=== PATIENT | female | born 1980 | race Caucasian/White ===

== ENCOUNTER 2022-02-08 11:54 | Emergency (ER) | payer MEDICAID, SELFPAY ==
--- NOTE | ~2022-02-08 | XR_ITS ---
EXAMINATION: XR CHEST CLINICAL INFORMATION: Chest pain COMPARISON: None TECHNIQUE: 2 views of the chest were obtained. FINDINGS: No significant abnormality is noted involving the heart, lungs, mediastinum, or soft tissues. Question postsurgical changes to the cervical spine seen on the PA view only. XR/XR chest 2V IMPRESSION: No evidence for acute disease in the chest.
[2022-02-08 12:02] VITALS: BMI 31.5
--- NOTE | 2022-02-08 12:03 | ECG_ITS ---
Test Reason : CHEST PAIN Blood Pressure : / mmHG Vent. Rate : 073 BPM Atrial Rate : 073 BPM P-R Int : 134 ms QRS Dur : 084 ms QT Int : 414 ms P-R-T Axes : 079 066 040 degrees QTc Int : 456 ms Normal sinus rhythm with sinus arrhythmia Normal ECG No previous ECGs available Referred By: Generic ED Physician Electronically Signed By:TIM SMITH
[2022-02-08 13:14] VITALS: BP 112/67; PULSE 68; RESP 22; TEMP 36.4; O2SAT 97; BMI 31.5
== END 2022-02-08 14:30 | disposition left against medical advice (07) ==
PROVIDERS: Emergency Provider Emergency Medicine; PCP Internal Medicine
DX: R07.89 Other chest pain (principal)
CPT/HCPCS: 71046; 93005; 99283

== ENCOUNTER 2022-08-09 08:58 | Outpatient (REF) | payer BC, SELFPAY ==
[2022-08-09 11:48] LABS: Hematocrit 35.2 % (37.0-47.0); Hemoglobin 11.1 g/dl (12.0-16.0); Mean Corpuscular HGB Conc 31.5 g/dl (31.0-35.0); Mean Corpuscular Hemoglobin 23.6 pg (27.0-33.0); Mean Corpuscular Volume 74.9 fL (80.0-98.0); Platelet Count 324 X10*3/uL (160-400); Red Cell Distribution Width 15.9 % (11.0-16.0); White Blood Count 11.5 X10*3/uL (4.8-10.8)
[2022-08-09 11:55] LABS: Alanine Aminotransferase 9 U/L (0-31); Albumin Level 4.1 g/dL (3.5-5.0); Alkaline Phosphatase 70 U/L (39-117); Anion Gap 11 (12-20); Aspartate Amino Transferase 12 U/L (5-31); Bilirubin Total 0.6 mg/dL (0.0-1.0); Blood Urea Nitrogen 8 mg/dL (9-16); Calcium 9.1 mg/dL (8.4-10.2); Carbon Dioxide 28 mmol/L (22-29); Chloride 106 mmol/L (96-108); Cholesterol 284 mg/dL; Estimated Glomerular Filt Rate > 60; Glucose Fasting 95 mg/dL (60-99); HDL Cholesterol 50 mg/dL; LDL Cholesterol Calculated 220 mg/dl; Potassium 4.2 mmol/L (3.3-5.1); Sodium 141 mmol/L (135-145); Total Protein 6.8 g/dL (6.5-8.0); Triglycerides 72 mg/dL
[2022-08-09 15:04] LABS: Iron 28 mcg/dL (30-160); Percent Iron Saturation 8 % (15-50); Total Iron Binding Capacity 359 mcg/dL (228-428); Unsaturated Iron Binding 331 ug/dL
== END 2022-08-09 08:59 | disposition home or self-care (01) ==
LOC: HO.WFDLDS 08:58
PROVIDERS: Nurse Practitioner Family; Visit Provider Hospitalist
DX: Z00.00 Encounter for general adult medical examination without abnormal findings (principal); D64.9 Anemia, unspecified; E66.9 Obesity, unspecified; Z98.84 Bariatric surgery status
CPT/HCPCS: 36415; 80053; 80061; 83540; 84443; 85027

== ENCOUNTER → 2022-09-01 07:56 | Outpatient (BNVA) | payer BC, SELFPAY | PROVIDERS: PCP Nurse Practitioner Family; Visit Provider Psychiatry & Neurology Neurology | DX: Z13.89 Encounter for screening for other disorder (principal) ==

== ENCOUNTER 2024-09-12 09:37 | Outpatient (AMB) | payer OTHER, SELFPAY ==
--- NOTE | 2024-09-12 09:39 | A.OFFPC_ITS ---
Vital Signs 09/12/24 09:50 Height 5 ft 2.5 in Weight 186 lb 6 oz BMI 33.5 BP 111/55 L Blood Pressure Location Rt brachial Position Sitting Respiration 16 Pulse 97 Pulse Source Pulse Oximeter Temp 98.1 F Temp Source Oral Pulse Oximetry (%) 98 Oxygen Delivery Method Room Air Intake Visit Reasons: Est. Care Intake Note: patient here for new patient visit Vegetable Farmer Required: No Is last menstrual period known: Yes Last menstrual period: 08/24/24 Post menopausal: No Patient : No Allergies buspirone Allergy (Severe, Verified 09/12/24 09:57) loss of balance Penicillins Allergy (Mild, Verified 09/12/24 09:57) hives tumeric Allergy (Severe, Uncoded 09/12/24 09:57) throat swelling iv contrast Allergy (Mild, Uncoded 09/12/24 09:57) Hives Medication List - Last Reconciled 09/12/24 by Marilee Brunner CNP ferrous sulfate (Iron (ferrous sulfate)) 325 mg PO DAILY 30 days lorazepam 1 mg PO BID PRN trazodone 100 mg PO BEDTIME PRN 30 days Tobacco use date assessed: 09/12/24 Dental Screening Dental Screen Date: 09/12/24 Did you have a dental visit in the last 12 months?: Yes Did you have a dental problem in the last 6 months where you did not have access to dental care?: No Was dental information given to patient?: Patient has dentist HPI HPI Comments History of Present Illness Details 44-year-old female presents to establish care. Prior PCP? - Lupe Mariscal [facility] Marci becerril Last office visit/CPE/labs - 09/06/2022 Acute issue(s) - Reports intermittent palpitations whic h started 2 weeks ago and was evaluated at [facility] ED. Labs and imaging were unremarkable. Her symptoms subsided for 2-3 days and returned on 09/07/2024 and has been persistent. She was evaluated at [facility] on 09/09/2024; see notes below: She was evaluated at [facility] 09/09/2024 for palpitations and an episode of syncope. EKG revealed intermittent PVCs, calcium was borderline low, otherwise electrolytes were within normal limits, troponin were negative, chest x-ray was normal, baseline microcytic anemia noted. Recommended to follow-up with her PCP to discuss Holter monitor. Anxiety and depression: She reports anxiety and depressive symptoms. She notes that she has always been anxious. 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 She has not been taking trazadone and trazadone since she ran out of refills 6 months ago. She was followed by a therapist until her health plan changed 8 months ago and lost coverage; she is on a wait list for a therapist. She denies SI/HI/LOBO. Past Medical History - Multiple sclerosis, iron-deficiency an emia, anxiety, depression, myopia Surgical History - section, bilateral breast red uction surgery, gastric sleeve, cholecystectomy Family History - Dad: Tumors - Mom: Alcohol abuse, mental illness - MGM: Dementia - MGF: Alcohol abuse Social History - She was smoking a pack of cigarettes d aily but currently smokes 10 cigarettes daily; she is trying to quit. Does not vape. Does not drink alcohol. Consumes cannabis gummy nightly for muscle cramps to legs - Has been making healthy dietary choice s. Exercises routinely. She has difficulty falling or maintaining sleep; she sleeps an average of 3-4 hours nightly Health maintenance - Last eye exam was 6 months ago with Rg gifford [facility]. She will sign a release for her PCP to obtain her ophthalmology record - Last dental visit was 2 months ago for an extraction. She notes poor dentition - Unable to recall last tetanus vaccine but notes within the past 10 years - She notes that she is up-to-date on flu vaccine - Last pap smear test was 2 years ago at [place] [facility] testing operator: normal. Record not available - Last mammogram was 12 years ago: benig n tumors. Mammogram ordered [facility] Medical History (Updated 09/12/24 @ 14:53 by Marilee Brunner CNP) Cervical fusion syndrome Imbalance Memory loss Headache Incontinence in female Back disorder History of palpitations Sinusitis Asthma Insomnia Memory change Cervicalgia Diplopia Numbness and tingling in both hands Weakness Fusion of spine of cervical region Depression Anxiety Multiple sclerosis Surgical History (Updated 09/12/24 @ 10:05 by Ingrid Boo MA) History of tonsillectomy H/O removal of cyst H/O section H/O gastric sleeve History of cholecystectomy Family History (Updated 09/12/24 @ 10:03 by Ingrid Boo MA) Family/Other Tumors Maternal Grandmother Dementia Thyroid disorder Lung cancer Sister Alcohol abuse FH: mental illness High cholesterol Thyroid disorder Mother Alcohol abuse FH: mental illness High cholesterol Thyroid disorder Maternal Aunt Alcohol abuse Maternal Aunt No problems noted. 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 1. Little interest or pleasure in doing things: more than half the days 2. Feeling down, depressed, or hopeless: several days 3. Trouble falling or staying asleep, or sleeping too much: nearly every day 4. Feeling tired or having little energy: nearly every day 5. Poor appetite or overeating: not at all 6. Feeling bad about yourself - or that you are a failure or have let yourself or your family down: more than half the days 7. Trouble concentrating on things, such as reading the newspaper or watching television: nearly every day 8. Moving or speaking so slowly that other people could have noticed. Or the opposite - being so fidgety or restless that you have been moving around a lot more than usual: not at all 9. Thoughts that you would be better off or of hurting yourself in some way: not at all Total score: 14 Depression Screening Interpretation: Positive Depression Screening Follow-up: Existing condition and In treatment Depression Screening Done: Yes 60116 - PHQ-9 Billing: Yes Source: Developed by Drs. Savage Scott, Marycruz Stark, Rancho Camejo and colleagues, with an educational dee from [employer]. Thrive Questionnaire Date Thrive assessed: 09/12/24 I am a: Patient What is your living situation today?: I have a steady place to live Within the past 12 months, did the food you bought not last and you didn't have the money to get more?: I choose not to answer this question Within the past 12 months, did you worry whether your food would run out before you got money to buy more?: I choose not to answer this question Do you have trouble paying for medicines?: I choose not to answer this question Do you have trouble getting transportation to medical appointments?: I choose not to answer this question Do you have trouble paying your heating and electricity bill?: I choose not to answer this question Do you have trouble taking care of your child, family member or friend?: I choose not to answer this question Do you have trouble with day-to-day activities such as bathing, preparing meals, shopping, managing finances, etc.?: I choose not to answer this question Are you currently unemployed and looking for a job?: I choose not to answer this question Are you interested in more education?: I choose not to answer this question Please select the resources that you would like help with: None Currently or been in a relationship where the following occur: I choose not to answer THRIVE Score: 0 AUDIT C Alcohol Use Questionnaire (AUDIT-C) 1. How often do you have a drink containing alcohol?: Never 3. How often do you have six or more drinks on one occasion?: Never Total Score: 0 Score Reviewed/Action Taken: Yes KAIDEN-7 AMB Questionnaire KAIDEN-7 Date KAIDEN - 7 assessed: 09/12/24 Feeling nervous, anxious, or on edge: 3 = Nearly every day Not being able to stop or control worryin = Nearly every day Worrying too much about different things: 3 = Nearly every day Trouble relaxin = Nearly every day Being so restless that it is hard to sit still: 3 = Nearly every day Becoming easily annoyed or irritable: 3 = Nearly every day Feeling afraid as if something awful might happen: 3 = Nearly every day Total KAIDEN-7 score (0-4 normal; 5-9 mild; 10-14 moderate; 15-21 severe): 21 Source: Developed by Marycruz Rose Lincoln, Rancho Camejo and colleagues, with an educational dee from [employer]. KAIDEN-7 Assessment Billing KAIDEN-7 Assessment Tool: KAIDEN-7 Assessment 07716 ACT Questionnaire In the past 4 weeks, how much of the time did your asthma keep you from getting as much done at work, school or at home?: None of the time During the past 4 weeks, how often have you had shortness of breath?: 3-6 times a week During the past 4 weeks, how often did your asthma symptoms wake you up at night or earlier than usual in the morning?: Not at all During the past 4 weeks, how often have you had to use your rescue inhaler or nebulizer medication?: Not at all How would you rate your asthma control during the past 4 weeks?: Completely controlled ACT Interpretation: Negative Score: 23 Review of Systems Const Details: Const Denies chills, Denies fatigue, Denies fever(s), Denies headache(s) and Denies weakness ENT Denies dizziness and Denies headache(s) Card Reports palpitations, Denies chest pain, Denies lightheadedness, Denies dyspnea Resp Denies cough, Denies dyspnea, Denies wheezing and Denies other ( shortness of breath) GI Denies abdominal pain, Denies melena, Denies hematochezia, Denies change in bowel habits, Denies dyspepsia and Denies nausea Denies hematuria and Denies dysuria Musc Denies abnormal gait, Denies myalgias, Denies arthralgias, Denies numbness and Denies tingling Skin/Breast Denies rash, Denies unusual bruising and Denies wounds Neuro Denies abnormal gait, Denies dizziness, Denies headache(s), Denies memory loss, Denies numbness, Denies Sensory deficit (Neuro), Denies tingling and Denies weakness Psych Reports anxiety, Reports depression, Denies memory loss Endo Denies cold intolerance, Denies fatigue, Denies heat intolerance, Denies polydipsia and Denies polyuria Aller/Immun Denies wheezing Physical exam (Primary Care) Vital Signs: Last Vital Signs Temp 98.1 F 09/12/24 09:50 Pulse 97 09/12/24 09:50 Resp 16 09/12/24 09:50 BP 111/55 L 09/12/24 09:50 Pulse Ox 98 09/12/24 09:50 Oxygen Delivery Method Room Air 09/12/24 09:50 BMI result Body Mass Index 33.5 Tobacco/Smoking Status: Tobacco use Status Tobacco use date assessed 09/12/24 09/12/24 09:54 Patient Tobacco Use Status Current everyday Tobacco 09/12/24 09:54 e-Cigarette/Vaping Use Never Used 09/12/24 09:41 PHQ-9: PHQ-9 Score PHQ-9: Total score 14 09/12/24 10:01 Depression Screening Interpretation: Positive Depression Screening Follow-up: Existing condition and In treatment Thrive Assessment: Date of Thrive Assessment Date Thrive assessed 09/12/24 09/12/24 09:41 Currently or been in a relationship where the following occur: I choose not to answer Const Other: General: no acute distress and well developed Nutritional Appearance: well nourished Orientation/consciousness: patient oriented x3 HENMT Head: Yes normocephalic and Yes atraumatic Eyes General: appearance normal, both eyes and all related structures Pupils: Equal, round and reactive pupils present EOM: EOMs intact bilaterally Resp Effort & Inspection: normal respiratory effort Auscultation: clear to auscultation bilaterally Cardio Rate: regular rate Rhythm: regular rhythm Heart sounds: S1 normal heart sound present, S2 normal heart sound present, no gallops, no murmurs and no rubs GI Palpation (GI): No Abdominal aortic bruit present, Soft to palpation, nontender, No hepatosplenomegaly present and No Rebound tenderness present Auscultation: normal bowel sounds General: Yes no CVA tenderness Back/Spine/Pelvis Back: no CVA tenderness Cervical Spine: cervical ROM normal and No Cervical spine tenderness Thoracic/Lumbar Spine: thoraco-lumbar ROM normal, No pain with thoraco-lumbar ROM, No thoracic spinal tenderness and No lumbar spinal tenderness Extrem General: Yes normal to inspection, No edema and No calf tenderness Skin General: warm and dry. Normal skin color. Normal skin turgor Lesions: no lesions Rashes: no rashes Trauma: no lacerations or abrasions Wounds: no wounds Nails: normal Neuro General: patient oriented x3, gait normal and no focal neuro deficit Cranial nerves: Yes Equal, round and reactive pupils present Cognition (Neuro): normal cognition Gait exam (Neuro): Normal gait present Sensory Exam: No Sensory deficit (Neuro) Psych Appearance: grossly normal Affect: normal affect Attitude: cooperative Thought process: Normal thought process present Coding Level of Care Code Est Pt Level 5 (09080) Diagnoses Heart palpitations R00.2 Anxiety F41.9 Major depressive disorder F32.9 Major depression episode severity: unspecified Sleep disturbance G47.9 Breast cancer screening by mammogram Z12.31 Laboratory tests ordered as part of a complete physical exam (CPE) Z00.00 Additional Codes Asthma Control Questionnaire - ACT Interpretation: Negative ([id number]) KAIDEN-7 Assessment Billing - KAIDEN-7 Assessment Tool: KAIDEN-7 Assessment 87528 ([id number]) PHQ-9 - 94636 - PHQ-9 Billing: Yes ([id number]) Assessment & Plan Assessment & Plan (1) Heart palpitations: Code(s): R00.2 - Palpitations Category: Medical Plan: She reports intermittent palpitations which started 2 weeks ago and was evaluated at [facility] ED. Labs and imaging were unremarkable. Her symptoms subsided for 2-3 days and returned on 09/07/2024 and has been persistent. She was recently evaluated at [facility] twice for palpitations; labs and EKG were benign. Heart with regular rate and rhythm. STAT Holter monitor ordered; will review results and make changes as needed. May referred to Cardiology. Anxiety may also be a contributing cause. Advised to take her medications as prescribed for anxiety. Follow-up with worsening or new symptoms. Verbalized understanding and agreed with plan. (2) Anxiety: Code(s): F41.9 - Anxiety disorder, unspecified Category: Medical Plan: She reports anxiety and depressive symptoms. She notes that she has always been anxious. 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 She has not been taking trazadone and lorazepam since she ran out of refills 6 months ago. She was followed by a therapist until her health plan changed 8 months ago and lost coverage; she is on a wait list for a therapist. She is not followed by a psychiatrist. She has difficulty falling or maintaining sleep; she sleeps an average of 3-4 hours nightly. She denies SI/HI/LOBO. PHQ-9 and KAIDEN-7 scores revealed moderate depression and severe anxiety respectively. Escitalopram 10 mg daily ordered to target depression, Trazodone 50 mg at bedtime ordered for sleep, and Hydroxyzine 25 mg 3 times daily as needed for anxiety ordered; advised to take as prescribed. Instructed on the risks, benefits, and potential adverse reactions of the medications. Routine exercise encouraged. Follow-up in 2 weeks or sooner with worsening or new symptoms. Verbalized understanding and agreed with the treatment plan. (3) Major depressive disorder: Code(s): F32.9 - Major depressive disorder, single episode, unspecified Category: Medical Qualifiers: Major depression episode severity: unspecified Plan: Plan as above. (4) Sleep disturbance: Code(s): G47.9 - Sleep disorder, unspecified Category: Medical Plan: Plan as above. (5) Breast cancer screening by mammogram: Code(s): Z12. - Encounter for screening mammogram for malignant neoplasm of breast Category: Medical Plan: Last mammogram was 12 years ago: benign tumors. Mammogram ordered. (6) Laboratory tests ordered as part of a complete physical exam (CPE): Code(s): Z00.00 - Encounter for general adult medical examination without abnormal findings Category: Medical Plan: Fasting labs ordered as part of a complete physical exam. Advised to fast for at least 10 hours before getting labs drawn. May drink water Verbalized understanding and agreed with treatment plan. Plan Total time spent caring for the patient today was 75 minutes. This includes 45 minutes with patient and remaining time spent before the visit reviewing the chart, and time spent after the visit on documentation, reviewing laboratory results, diagnostic imaging, medications, performing a medically necessary evaluation, counseling on diagnoses, care coordination, ordering appropriate tests, ordering appropriate medications, communication with other healthcare providers. Orders: Orders Comprehensive Bloomery. Panel Fast Today Z00.00 - Encounter for general adult medical examination without abnormal findings Microalbumin, Random (w Creat) Today Z00.00 - Encounter for general adult medical examination without abnormal findings UA CC w/rflx Micro + Cult Today Z00.00 - Encounter for general adult medical examination without abnormal findings Complete Blood Count Auto Diff Today Z00.00 - Encounter for general adult medical examination without abnormal findings ECG holter monitor 24 hour Today R00.2 - Palpitations MM screening mammo BI Today Z12.31 - Encounter for screening mammogram for malignant neoplasm of breast Lipid Panel Today Z00.00 - Encounter for general adult medical examination without abnormal findings TSH reflex Free T4 Today Z00.00 - Encounter for general adult medical exam ination without abnormal findings Vitamin D 25-OH Total Today Z00.00 - Encounter for general adult medical examination without abnormal findings Medications: New hydroxyzine HCl 25 mg PO TID PRN 90 tabs 3RF anxiety escitalopram oxalate 10 mg PO DAILY 30 days 30 tabs 3RF
[2024-09-12 09:50] VITALS: BP 111/55; PULSE 97; RESP 16; TEMP 36.7; O2SAT 98; BMI 33.5
--- OUTSIDE RECORDS SUMMARY | 2024-09-12 09:57 | XMS_ITS | Encounter Summary ---
Author Organization [facility] Address [address] [place] [address] Care Team Providers Care Telecommunications Network Planner Name Role Phone Unavailable Primary Care Provider Unavailabl e Encounter Details Date Type Department Care Team (Late st Contact Info) Description 01/11/2023 Abstract Elsi [facility] OPTOMETRY [address] [place] [address] Sherry Stubbs, BRICE [address] [place] [address] Social History Tobacco Use Types Packs/Day Years Used Date Smoking Tobacco: Never Assessed Comments Unknown Sex and Gender Information Value Date Recorded Sex Assigned at Female 05/30/2022 12:53 PM EST Legal Sex Female 8:39 PM EDT Gender Identity Female 05/30/2022 12:53 PM EST Sexual Orientation Straight 05/30/2022 12 :53 PM EST documented as of this encounter Plan of Treatment Not on file documented as of this encounter Visit Diagnoses Not on filedocumented in this encounter
--- OUTSIDE RECORDS SUMMARY | 2024-09-12 09:57 | XMS_ITS | Encounter Summary ---
Author Organization [facility] Address [address] [place] [address] Care Team Providers Care Heavy Equipment Operator/Paver Name Role Phone Unavailable Primary Care Provider Unavailabl e Reason for Visit * Reason Onset Date Comments Dr. Massey medication not working 07/01/2024 Encounter Details Date Type Department Care Team ([facility] st Contact Info) Description 07/01/2024 Telephone [facility] ADULT [facility] [address] [place] [address] Humza Massey DDS [address] [place] [address] Dr. Massey medication not working Social History Tobacco Use Types Packs/Day Years Used Date Smoking Tobacco: Former Cigarettes Passive Smoke Exposure: Never Smokeless Tobacco: Former Alcohol Use Standard Drinks/Week Comments Defer 0 (1 standard drink = 0.6 oz pur e alcohol) Comments Unknown Sex and Gender Information Value Date Recorded Sex Assigned at Female 05/30/2022 12:53 PM EST Legal Sex Female 8:39 PM EDT Gender Identity Female 05/30/2022 12:53 PM EST Sexual Orientation Straight 05/30/2022 12 :53 PM EST documented as of this encounter Miscellaneous Notes * Telephone Encounter - Humza Massey DDS - 07/03/2024 1:12 PM EST Mae Lara, At this point, I think the most convenient scenario for Tanya, is continue with prescribed medicines, they should work when taking them in a timely manner. Tanya it is very difficult to prescribe with stronger doses and broader spectrums due to large number of allergens acting in her body. I suggested (when I saw her) to proceed with the extraction. However, Tanya preferred to have the extraction with Dr. Santos and to have anxiolytics prior extraction. Pt to go to [facility]. * Telephone Encounter - Jane Silver - 07/03/2024 12:13 PM EST Message for Dr. Massey Patient called in stating that she is in extreme pain and the medication is not working. Came to dental visit on 07/01 and states antibiotic and pain medication has not touched the pain and has not felt any relief. Looking to see next steps or if medication can be changed * Telephone Encounter - Jane Silver - 07/01/2024 8:31 AM EST Patient has a name change. She is no longer [facility]. She is Bol from recent marriage. Informed patient to bring her current ID and/or marraige certificate for chart update. Insurance carries her current name documented in this encounter Plan of Treatment Not on file documented as of this encounter Visit Diagnoses Not on filedocumented in this encounter
--- OUTSIDE RECORDS SUMMARY | 2024-09-12 09:57 | XMS_ITS | Clinical Summary ---
Author Organization [employer] Address [address] [place] [address] 7 [place] [address] Care Team Providers Care Patrol Commander Name Role Phone Unavailable Primary Care Provider Unavailabl e Allergies Active Allergy Reactions Criticality Noted Date Comments Ibuprofen Hives 07/01/2024 Epinephrine Hives 07/01/2024 Penicillins Hives 07/01/2024 Red Dye 07/01/2024 Turmeric Hives 07/01/2024 Medications No known medications Active Problems Problem Noted Date Diagnosed Date Dental caries extending into pulp 07/01/2024 Symptomatic irreversible pulpitis 07/01/2024 Dental abscess 07/01/2024 Encounters Date Type Department Care Team Description 07/22/2024 3:00 PM EDT Office Visit [facility] [address] [place] [phone] Jed Wylie, BDS 07/21/2024 10:00 AM EDT Office Visit [facility] [address] [place] [phone] Jed Wylie, BDS 07/01/2024 11:30 AM EST Office Visit [facility] [address] [place] [address] Humza Massey DDS Dental caries extending into pulp (Primary Dx); Symptomatic irreversible pulpitis; Dental abscess 07/01/2024 Telephone [facility] [address] [place], [place] [phone] Humza Massey DDS Dr. Bolano medication not working from Last 3 Months Social History Tobacco Use Types Packs/Day Years Used Date Smoking Tobacco: Former Cigarettes Passive Smoke Exposure: Never Smokeless Tobacco: Former Tobacco Cessation:Counseling Given: No Alcohol Use Standard Drinks/Week Comments Defer 0 (1 standard drink = 0.6 oz pur e alcohol) Comments Unknown Sex and Gender Information Value Date Recorded Sex Assigned at Female 05/30/2022 12:53 PM EST Legal Sex Female 8:39 PM EDT Gender Identity Female 05/30/2022 12:53 PM EST Sexual Orientation Straight 05/30/2022 12 :53 PM EST Last Filed Vital Signs Vital Sign Reading Time Taken Comments Blood Pressure 98/70 07/21/2024 10:08 AM EDT Pulse - - Temperature - - Respiratory Rate - - Oxygen Saturation - - Inhaled Oxygen Concentration - - Weight - - Height - - Body Mass Index - - Plan of Treatment Health Maintenance Due Date Last Done Comments Depression Screening 1981 HIV Screening 1981 SDOH Screening 1981 Alcohol/Substance Use Screening 1993 Family Planning (PISQ) 1996 Hepatitis C Screening 1999 DTaP/Tdap/Td Vaccines (1 - Tdap) 2000 Hepatitis B Vaccines (1 of 3 - 19+ 3-dose series) 2000 Pap Smear 2002 Cervical Cancer Screening 2011 HPV/Cotest 2011 Dental Prophylaxis 07/23/2015 01/21/2015, 1 , 01/26/2003 Dental Oral Exam 06/02/2021 11/29/2020, , 02/06/2011, Additional history exists Mammogram 2021 Dental X-Ray: Bitewings 11/30/2021 11/30/19 21, 01/21/2015, 02/06/2011 COVID-19 Vaccine (2023- season) 2024 Influenza Vaccine (#1) 2024 07/30/2020, 2018 Tobacco Screening 07/22/2025 07/22/2024 Dental X-Ray: Full Mouth 07/02/2027 025, 11/29/2020, 01/21/2015, Additional history exists Zoster Vaccines (1 of 2) 2031 RSV Patients and Patients Aged 60 years or older (1 - 1-dose 75+ series) 2056 HIB Vaccines Aged Out No longer eligi ble based on patient's age to complete this topic HPV Vaccines Aged Out No longer eligi ble based on patient's age to complete this topic Hepatitis A Vaccines Aged Out No long er eligible based on patient's age to complete this topic IPV Vaccines Aged Out No longer eligi ble based on patient's age to complete this topic Meningococcal Vaccine Aged Out No patrizia tristan eligible based on patient's age to complete this topic Pneumococcal Vaccine: Pediatrics (0 to 5 Years) and At-Risk Patients (6 to 49) Years) Aged Out No longer eligible based on patient's age to complete this topic RSV under 20 months Aged Out No longe r eligible based on patient's age to complete this topic Rotavirus Vaccines Aged Out No longer eligible based on patient's age to complete this topic Procedures Procedure Name Priority Date/Time Associated Diagnosis Comments NO CHARGE PROCEDURE Routine 07/22/2024 3 :00 PM EDT 3 EXTRACTION, ERUPTED TOOTH OR EXPOSED ROOT (ELEVATION/FORCEPS REMOVAL) Routine 07/21/2024 10:00 AM EDT LIMITED ORAL EVALUATION - PROBLEM FOCUSED Routine 07/01/2024 11:30 AM EST PANORAMIC RADIOGRAPHIC IMAGE Routine 07/01/2024 11:30 AM EST INTRAORAL - COMPLETE SERIES OF RADIOGRAPHIC IMAGES Routine 11/29/2020 12:00 AM EDT PERIODIC ORAL EVALUATION - ESTABLISHED PATIENT Routine 11/29/2020 12:00 AM EDT PROPHYLAXIS - ADULT Routine 01/21/2015 1 2:00 AM EDT from Last 3 Months or Most Recently Relevant to Health Maintenance Insurance [facility] STANDARD DENTAL - CIGNA DENTAL PPO
--- OUTSIDE RECORDS SUMMARY | 2024-09-12 09:58 | XMS_ITS | Encounter Summary ---
Author Organization [employer] Address [address] [place] [address] 7 [place] [address] Care Team Providers Care Principal Associate Name Role Phone Unavailable Primary Care Provider Unavailabl e Encounter Details Date Type Department Care Team (Latest Contact Info) Description 11/29/2020 Abstract [facility] Dental, Provider, DDS Social History Tobacco Use Types Packs/Day Years [...]
== END 2024-09-12 10:25 | disposition home or self-care (01) ==
LOC: HO.HMCFM 09:38
PROVIDERS: PCP Nurse Practitioner Family; Visit Provider Nurse Practitioner Family
DX: R00.2 Palpitations (principal); F41.9 Anxiety disorder, unspecified; F32.9 Major depressive disorder, single episode, unspecified; G47.9 Sleep disorder, unspecified; Z12.31 Encounter for screening mammogram for malignant neoplasm of breast

== ENCOUNTER → 2024-09-12 09:37 | Outpatient (BNVA) | payer OTHER, SELFPAY | PROVIDERS: PCP Nurse Practitioner Family; Visit Provider Nurse Practitioner Family | DX: Z76.89 Persons encountering health services in other specified circumstances (principal); R00.2 Palpitations; F41.9 Anxiety disorder, unspecified; F32.9 Major depressive disorder, single episode, unspecified; G47.9 Sleep disorder, unspecified; Z79.899 Other long term (current) drug therapy | CPT/HCPCS: 96127; 96160 ==

== ENCOUNTER → 2024-09-16 10:21 | Outpatient (REF) | payer OTHER, SELFPAY | LOC: HO.CARD 10:21 | PROVIDERS: PCP Nurse Practitioner Family; Visit Provider Nurse Practitioner Family | DX: R00.2 Palpitations (principal) | CPT/HCPCS: 93225 ==

== ENCOUNTER 2024-09-24 08:32 | Outpatient (REF) | payer OTHER, SELFPAY ==
--- OUTSIDE RECORDS SUMMARY | 2024-09-24 09:53 | XMS_ITS | Encounter Summary ---
Author Organization [employer] Address [address] [place] [address] 7t [place] [address] Care Team Providers Care Utility Plant Operative Name Role Phone Unavailable Primary Care Provider [...]
--- OUTSIDE RECORDS SUMMARY | 2024-09-24 09:53 | XMS_ITS | Clinical Summary ---
Author Organization [employer] Address [address] [place] [address] 7 [place] [address] Care Team Providers Care Datacap Developer Name Role Phone Unavailable Primary Care Provider [...] Description 07/22/2024 3:00 PM EDT Office Visit [facility] [address] [place] [phone] Jed Wylie, BDS 07/21/2024 10:00 AM EDT Office Visit [facility] [address] [place] [phone] Jed Wylie, BDS 07/01/2024 11:30 AM EST Office Visit [facility] [address] [place] [phone] Humza Massey DDS Dental caries extending into pulp (Primary Dx); Symptomatic irreversible pulpitis; Dental abscess 07/01/2024 Telephone [facility] [address] [place], [place] [phone] Humza Massey DDS Dr. Bolano medication not [...] 1981 HIV Screening 1981 SDOH Screening 1981 Disability Screening 1981 Alcohol/Substance Use Screening 1993 Family [...] 11/30/2021 11/30/19 21, 01/21/2015, 02/06/2011 COVID-19 Vaccine ( season) 2024 Influenza Vaccine (#1) 2024 07/30/2020, [...] patient's age to complete this topic Meningococcal B Vaccine Aged Out No l onger eligible based on patient's age to complete [...] Most Recently Relevant to Health Maintenance Insurance [facility] STANDARD DENTAL - CIGNA DENTAL PPO
--- OUTSIDE RECORDS SUMMARY | 2024-09-24 09:53 | XMS_ITS | Encounter Summary ---
Author Organization [employer] Address [address] [facility] [address]t [place] [address] Care Team Providers Care Construction Plumber Name Role Phone Unavailable Primary Care Provider Unavailabl e Encounter Details Date Type Department Care Team (Late st Contact Info) Description 01/11/2023 Abstract El[facility]OM[facility] [address] [place] [address] Sherry Stubbs, BRICE [address] [place] [address] Social History Tobacco Use Types Packs/Day Years [...]
--- OUTSIDE RECORDS SUMMARY | 2024-09-24 09:53 | XMS_ITS | Encounter Summary ---
Author Organization [employer] Address [address] [facility] 7t [place] [address] Care Team Providers Care Framing Manager Name Role Phone Unavailable Primary Care Provider Unavailabl e Reason for Visit * Reason Onset Date Comments Dr. Massey medication not working 07/01/2024 Encounter Details Date Type Department Care Team ([facility] st Contact Info) Description 07/01/2024 Telephone [facility] [address] [place] [address] Humza Massey DDS [address] [place] [address] Dr. Massey medication not working Social History [...] anxiolytics prior extraction. Pt to go to [facility]. * Telephone Encounter - Jane Silver [...] a name change. She is no longer [facility]. She is Bol from recent marriage. Informed patient to bring her current ID and/or marraige certificate for chart update. Insurance carries her current name documented in this encounter Plan of Treatment Not on file documented as of this encounter Visit Diagnoses Not on filedocumented in this encounter
[2024-09-24 11:12] LABS: MANUAL DIFF FLAG NO
[2024-09-24 11:17] LABS: Appearance Urine Clear; Color Urine Dark Yellow; Glucose Urine UA Negative (Negative); Leukocyte Esterase Urine Negative (Negative); Nitrite Urine Negative (Negative); PH 6.5 (5.0-9.0); Specific Gravity - Urine 1.025 (1.005-1.025); Urine Blood Negative (Negative); Urine Ketones Trace mg/dL (Negative); Urine Protein Negative (Neg-Trace)
[2024-09-24 11:17] LABS: Basophils Absolute Auto 0.1 X10*3/uL (0.0-0.2); Basophils Percent Auto 1.1 % (0-2); Eosinophils Absolute Auto 0.2 X10*3/uL (0.0-0.4); Eosinophils Percent Auto 2.6 % (0-4); Hemoglobin 9.8 g/dl (12.0-16.0); Imm Gran Abs Auto 0.03 X10*3/uL (0.00-0.03); Imm Gran Pct Auto 0.4 % (0.0-0.4); Lymphocytes Absolute Auto 2.4 X10*3/uL (1.2-4.9); Lymphocytes Percent Auto 33.5 % (20-40); Mean Corpuscular HGB Conc 30.6 g/dl (31.0-35.0); Mean Corpuscular Hemoglobin 21.7 pg (27.0-33.0); Mean Platelet Volume 9.8 fL (9.4-12.3); Monocytes Absolute Auto 0.5 X10*3/uL (0.1-1.2); Neutrophils Absolute Auto 3.9 x10*3/uL (2.0-8.3); Neutrophils Percent Auto 55.4 % (45-73); Platelet Count 328 X10*3/uL (160-400); Red Blood Count 4.51 X10*6/uL (4.20-5.50); Red Cell Distribution Width 17.1 % (11.0-16.0)
[2024-09-24 11:47] LABS: Creatinine Urine 214.27 mg/dL; Microalbum/Creatinine Ratio Ur 5.1 ug/mg cr (<30)
[2024-09-24 12:24] LABS: Alanine Aminotransferase 16 U/L (0-31); Albumin Level 3.9 g/dL (3.5-5.0); Alkaline Phosphatase 71 U/L (39-117); Anion Gap 10 (12-20); Aspartate Amino Transferase 18 U/L (5-31); Bilirubin Total 0.6 mg/dL (0.0-1.0); Blood Urea Nitrogen 8 mg/dL (9-16); Calcium 8.5 mg/dL (8.4-10.2); Carbon Dioxide 27 mmol/L (22-29); Chloride 107 mmol/L (96-108); Cholesterol 254 mg/dL (<200); Estimated Glomerular Filt Rate > 60; Glucose Fasting 97 mg/dL (60-99); HDL Cholesterol 48 mg/dL (>40); LDL Cholesterol Calculated 190 mg/dL (<100); Potassium 3.9 mmol/L (3.3-5.1); Sodium 140 mmol/L (135-145); TSH reflex Free T4 1.01 uIU/mL (0.32-4.0); Triglycerides 82 mg/dL (<150); Vitamin D 25-OH Total 15.2 ng/mL (>30)
== END 2024-09-24 08:33 | disposition home or self-care (01) ==
LOC: HO.WFDLDS 08:32
PROVIDERS: Visit Provider Nurse Practitioner Family
DX: Z00.00 Encounter for general adult medical examination without abnormal findings (principal)
CPT/HCPCS: 36415; 80053; 80061; 81003; 82043; 82306; 82570; 84443; 85025

== ENCOUNTER 2024-10-07 08:28 | Outpatient (AMB) | payer OTHER, SELFPAY ==
--- NOTE | 2024-10-07 08:31 | A.OFFPC_ITS ---
Vital Signs 10/07/24 08:35 Height 5 ft 2.5 in Weight 187 lb 2 oz BMI 33.7 BP 109/56 L Blood Pressure Location Lt brachial Position Sitting Respiration 16 Pulse 77 Pulse Source Pulse Oximeter Temp 98.0 F Temp Source Oral Pulse Oximetry (%) 97 Oxygen Delivery Method Room Air Intake Visit Reasons: 2 wks anxiety, depression Intake Note: patient here for 2 wks follow up on anxiety Continuous Crusher Operator Required: No Is last menstrual period known: Yes Last menstrual period: 09/20/24 Post menopausal: No Patient : No Allergies buspirone Allergy (Severe, Verified 10/07/24 08:57) loss of balance Penicillins Allergy (Mild, Verified 10/07/24 08:57) hives tumeric Allergy (Severe, Uncoded 10/07/24 08:57) throat swelling enteric Allergy (Intermediate, Uncoded 10/07/24 08:57) Vomiting iv contrast Allergy (Mild, Uncoded 10/07/24 08:57) Hives Medication List - Last Reconciled 10/07/24 by Marilee Brunner CNP escitalopram oxalate 10 mg PO DAILY 30 days ferrous sulfate (Iron (ferrous sulfate)) 325 mg PO DAILY 30 days hydroxyzine HCl 25 mg PO TID PRN lorazepam 1 mg PO BID PRN trazodone 100 mg PO BEDTIME PRN 30 days Tobacco use date assessed: 10/07/24 Dental Screening Dental Screen Date: 10/07/24 Did you have a dental visit in the last 12 months?: Yes Did you have a dental problem in the last 6 months where you did not have access to dental care?: No Was dental information given to patient?: Patient has dentist HPI HPI Comments History of Present Illness Details 44-year-old female presents for anxiety and review of recent lab results follow-up. She admits to taking her medications as prescribed without adverse reactions. She notes that she has been taking 65 mg elemental iron with vitamin-C daily for a very long time; she does not take prescription ferrous sulfate due to adverse reaction of upset stomach. She reports anxiety and depressive symptoms which have not changed since her last visit. She takes escitalopram as prescribed. However, she has not taking hydroxyzine since prescribed. She notes passive SI due to history of brain lesions with intermittent neurological symptoms, including abnormal gait and sluggish physical response which makes it difficult to perform ADLs. She is followed by J[facility] Jones since neurology and was last seen in January 2024; she will contact them for follow-up appointment. 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 She denies active SI. She notes that her palpitations have been infrequent. Recent Holter monitor test was unremarkable. [facility] Medical History (Updated 10/07/24 @ 08:46 by Marilee Brunner CNP) Cervical fusion syndrome Imbalance Memory loss Headache Incontinence in female Back disorder History of palpitations Sinusitis Asthma Insomnia Memory change Cervicalgia Diplopia Numbness and tingling in both hands Weakness Fusion of spine of cervical region Depression Anxiety Multiple sclerosis Surgical History (Updated 09/12/24 @ 10:05 by Ingrid Boo MA) History of tonsillectomy H/O removal of cyst H/O section H/O gastric sleeve History of cholecystectomy Family History (Updated 09/12/24 @ 10:03 by Ingrid Boo MA) Family/Other Tumors Maternal Grandmother Dementia Thyroid disorder Lung cancer Sister Alcohol abuse FH: mental illness High cholesterol Thyroid disorder Mother Alcohol abuse FH: mental illness High cholesterol Thyroid disorder Maternal Aunt Alcohol abuse Maternal Aunt No problems noted. 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 1. Little interest or pleasure in doing things: more than half the days 2. Feeling down, depressed, or hopeless: more than half the days 3. Trouble falling or staying asleep, or sleeping too much: nearly every day 4. Feeling tired or having little energy: nearly every day 5. Poor appetite or overeating: not at all 6. Feeling bad about yourself - or that you are a failure or have let yourself or your family down: nearly every day 7. Trouble concentrating on things, such as reading the newspaper or watching television: more than half the days 8. Moving or speaking so slowly that other people could have noticed. Or the opposite - being so fidgety or restless that you have been moving around a lot more than usual: not at all 9. Thoughts that you would be better off or of hurting yourself in some way: several days Total score: 16 Depression Screening Interpretation: Positive Depression Screening Follow-up: Existing condition, In treatment and Change in Medication Depression Screening Done: Yes 04621 - PHQ-9 Billing: Yes Source: Developed by Drs. Savage Scott, Marycruz Stark, Rancho Camejo and colleagues, with an educational dee from [employer]. Thrive Questionnaire Date Thrive assessed: 09/12/24 I am a: Patient What is your living situation today?: I have a steady place to live Within the past 12 months, did the food you bought not last and you didn't have the money to get more?: I choose not to answer this question Within the past 12 months, did you worry whether your food would run out before you got money to buy more?: I choose not to answer this question Do you have trouble paying for medicines?: I choose not to answer this question Do you have trouble getting transportation to medical appointments?: I choose not to answer this question Do you have trouble paying your heating and electricity bill?: I choose not to answer this question Do you have trouble taking care of your child, family member or friend?: I choose not to answer this question Do you have trouble with day-to-day activities such as bathing, preparing meals, shopping, managing finances, etc.?: I choose not to answer this question Are you currently unemployed and looking for a job?: I choose not to answer this question Are you interested in more education?: I choose not to answer this question Please select the resources that you would like help with: None Currently or been in a relationship where the following occur: I choose not to answer THRIVE Score: 0 KAIDEN-7 AMB Questionnaire KAIDEN-7 Date KAIDEN - 7 assessed: 10/07/24 Feeling nervous, anxious, or on edge: 3 = Nearly every day Not being able to stop or control worryin = Nearly every day Worrying too much about different things: 3 = Nearly every day Trouble relaxin = Nearly every day Being so restless that it is hard to sit still: 1 = Several days Becoming easily annoyed or irritable: 3 = Nearly every day Feeling afraid as if something awful might happen: 3 = Nearly every day Total KAIDEN-7 score (0-4 normal; 5-9 mild; 10-14 moderate; 15-21 severe): 19 Source: Developed by Drs. Savage Scott, Marycruz Stark, Rancho Camejo and colleagues, with an educational dee from [employer]. KAIDEN-7 Assessment Billing KAIDEN-7 Assessment Tool: KAIDEN-7 Assessment 88600 Review of Systems Const Details: Const Denies chills, Denies fatigue, Denies fever(s), Denies headache(s) and Denies weakness ENT Denies dizziness and Denies headache(s) Card Denies chest pain, Denies lightheadedness, Denies dyspnea and Denies other (Palpitations) Resp Denies cough, Denies dyspnea, Denies wheezing and Denies other ( shortness of breath) GI Denies abdominal pain, Denies melena, Denies hematochezia, Denies change in bowel habits, Denies dyspepsia and Denies nausea Denies hematuria and Denies dysuria Musc Denies abnormal gait, Denies myalgias, Denies arthralgias, Denies numbness and Denies tingling Skin/Breast Denies rash, Denies unusual bruising and Denies wounds Neuro Denies abnormal gait, Denies dizziness, Denies headache(s), Denies memory loss, Denies numbness, Denies Sensory deficit (Neuro), Denies tingling and Denies weakness Psych Reports anxiety, Reports depression, Denies memory loss Endo Denies cold intolerance, Denies fatigue, Denies heat intolerance, Denies polydipsia and Denies polyuria Aller/Immun Denies wheezing Physical exam (Primary Care) Vital Signs: Last Vital Signs Temp 98.0 F 10/07/24 08:35 Pulse 77 10/07/24 08:35 Resp 16 10/07/24 08:35 BP 109/56 L 10/07/24 08:35 Pulse Ox 97 10/07/24 08:35 Oxygen Delivery Method Room Air 10/07/24 08:35 BMI result Body Mass Index 33.7 Tobacco/Smoking Status: Tobacco use Status Tobacco use date assessed 10/07/24 10/07/24 08:39 Patient Tobacco Use Status Current everyday Tobacco 10/07/24 08:39 e-Cigarette/Vaping Use Never Used 10/07/24 08:39 PHQ-9: PHQ-9 Score PHQ-9: Total score 16 10/07/24 08:39 Depression Screening Interpretation: Positive Depression Screening Follow-up: Existing condition, In treatment and Change in Medication Thrive Assessment: Date of Thrive Assessment Date Thrive assessed 09/12/24 10/07/24 08:39 Currently or been in a relationship where the following occur: I choose not to answer Const Other: General: no acute distress and well developed Nutritional Appearance: well nourished Orientation/consciousness: patient oriented x3 HENMT Head: Yes normocephalic and Yes atraumatic Eyes General: appearance normal, both eyes and all related structures Pupils: Equal, round and reactive pupils present EOM: EOMs intact bilaterally Resp Effort & Inspection: normal respiratory effort Auscultation: clear to auscultation bilaterally Cardio Rate: regular rate Rhythm: regular rhythm Heart sounds: S1 normal heart sound present, S2 normal heart sound present, no gallops, no murmurs and no rubs GI Palpation (GI): No Abdominal aortic bruit present, Soft to palpation, nontender, No hepatosplenomegaly present and No Rebound tenderness present Auscultation: normal bowel sounds General: Yes no CVA tenderness Back/Spine/Pelvis Back: no CVA tenderness Cervical Spine: cervical ROM normal and No Cervical spine tenderness Thoracic/Lumbar Spine: thoraco-lumbar ROM normal, No pain with thoraco-lumbar ROM, No thoracic spinal tenderness and No lumbar spinal tenderness Extrem General: Yes normal to inspection, No edema and No calf tenderness Skin General: warm and dry. Normal skin color. Normal skin turgor Neuro General: patient oriented x3, gait normal and no focal neuro deficit Cranial nerves: Yes Equal, round and reactive pupils present Cognition (Neuro): normal cognition Gait exam (Neuro): Normal gait present Sensory Exam: No Sensory deficit (Neuro) Psych Appearance: grossly normal Affect: normal affect Attitude: cooperative Thought process: Normal thought process present Coding Level of Care Code Est Pt Level 4 (03774) Diagnoses Anxiety F41.9 Iron deficiency anemia D50.9 Hypercholesterolemia E78.00 Vitamin D deficiency E55.9 Additional Codes KAIDEN-7 Assessment Billing - KAIDEN-7 Assessment Tool: KAIDEN-7 Assessment 72349 ([id number]) PHQ-9 - 23991 - PHQ-9 Billing: Yes ([id number]) Assessment & Plan Assessment & Plan (1) Anxiety: Code(s): F41.9 - Anxiety disorder, unspecified Category: Medical Plan: She reports anxiety and depressive symptoms which have not changed since her last visit. She takes escitalopram as prescribed. However, she has not taking hydroxyzine since prescribed. She notes passive SI due to history of brain lesions with intermittent neurological symptoms, including abnormal gait and sluggish physical response which makes it difficult to perform ADLs. She is followed by [facility] Jones since neurology and was last seen in January 2024; she will contact them for follow-up appointment. 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 She denies active SI. No focal neuro deficit. PHQ-9 and KAIDEN-7 scores revealed moderately severe depression and severe anxiety respectively. Will increase escitalopram to 20 mg daily; advised to take as prescribed. Encouraged to take hydroxyzine as needed for anxiety. Declines trazodone for sleep. Instructed on sleep hygiene. Encouraged to schedule an appointment with her neurologist as soon as possible. Follow-up in 1 month or sooner with worsening or new symptoms. Verbalized understanding and agreed with treatment plan. (2) Iron deficiency anemia: Code(s): D50.9 - Iron deficiency anemia, unspecified Category: Medical Plan: Recent H&H levels are low, 9.8/32.0 respectively, MCV is low, 71.0. Ferrous sulfate 325 mg daily ordered; advised to take as prescribed. Instructed on the risks, benefits, and potential adverse reactions of the medication. Will check iron profile, ferritin level, vitamin B12, and folate levels today. Will recheck CBC and iron studies in 1 month. Follow-up in 1 month. Verbalized understanding and agreed with the plan. (3) Hypercholesterolemia: Code(s): E78.00 - Pure hypercholesterolemia, unspecified Category: Medical Plan: Recent total cholesterol and LDL levels are elevated, 254 and 190 respectively. She has history of elevated total cholesterol and LDL levels. Likely related to poor diet. Declines medication treatment at this time and notes she will start making healthy lifestyle choices. Advised to limit foods high in saturated fat and avoid foods high in trans fat. Routine exercise encouraged. Will recheck lipid panel levels in 2 months. Verbalized understanding and agreed with the plan. (4) Vitamin D deficiency: Code(s): E55.9 - Vitamin D deficiency, unspecified Category: Medical Plan: Recent vitamin-D level is significantly low, 15.2. Vitamin D3 2000 units daily ordered; advised to take as prescribed. Informed that the sun is a good source of vitamin-D. Will recheck vitamin-D level in 2 months. Verbalized understanding and agreed with the plan. Orders: Orders IRON PROFILE Today D50.9 - Iron deficiency anemia, unspecified Ferritin Today D50.9 - Iron deficiency anemia, unspecified Vitamin B12 and Folate Today D50.9 - Iron deficiency anemia, unspecified IRON PROFILE 1 Month D50.9 - Iron deficiency anemia, unspecified Complete Blood Count no Diff 1 Month D50.9 - Iron deficiency anemia, unspecified Ferritin 1 Month D50.9 - Iron deficiency anemia, unspecified Medications: New escitalopram oxalate 20 mg PO DAILY 30 days 30 tabs 3RF cholecalciferol (vitamin D3) 50 mcg PO DAILY 90 days 90 tabs 1RF Discontinued ferrous sulfate (Iron (ferrous sulfate)) Discontinued Reason: Patient no longer taking 325 mg PO DAILY 30 days 30 ta bs 5RF trazodone Discontinued Reason: Patient no longer taking 100 mg PO BEDTIME 30 days PRN 30 tabs 1RF insomnia escitalopram oxalate Discontinued Reason: Doctor's Order 10 mg PO DAILY 30 days 30 tabs 3RF
[2024-10-07 08:35] VITALS: BP 109/56; PULSE 77; RESP 16; TEMP 36.7; O2SAT 97; BMI 33.7
--- OUTSIDE RECORDS SUMMARY | 2024-10-07 08:47 | XMS_ITS | Clinical Summary ---
Author Organization [employer] Address [address] [place] [address] 7 [place] [address] Care Team Providers Care Grout Machine Operator Name Role Phone Unavailable Primary Care Provider [...] Description 07/22/2024 3:00 PM EDT Office Visit [facility] [address] [place] [id number] Jed Wylie BDS 07/21/2024 10:00 AM EDT Office Visit [facility] [address] [place] [address] Jed Wylie BDS from Last 3 Months Social History Tobacco [...] COVID-19 Vaccine ( season) 2024 Influenza Vaccine (Season Ended) 2025 07/30/2020, 02/19/2019 Tobacco Screening 07/22/2025 07/22/2024 Dental X-Ray: Full [...] (ELEVATION/FORCEPS REMOVAL) Routine 07/21/2024 10:00 AM EDT PANORAMIC RADIOGRAPHIC IMAGE Routine 07/01/2024 11:30 AM EST INTRAORAL - COMPLETE SERIES OF RADIOGRAPHIC IMAGES Routine 11/29/2020 12:00 AM EDT PERIODIC ORAL EVALUATION - ESTABLISHED PATIENT Routine 11/29/2020 12:00 AM EDT PROPHYLAXIS - ADULT Routine 01/21/2015 1 2:00 AM EDT from Last 3 Months or Most Recently Relevant to Health Maintenance Insurance [facility] STANDARD DENTAL - [employer]IG[employer] DENTAL PPO
== END 2024-10-07 09:11 | disposition home or self-care (01) ==
LOC: HO.HMCFM 08:29
PROVIDERS: PCP Nurse Practitioner Family; Visit Provider Nurse Practitioner Family
DX: F41.9 Anxiety disorder, unspecified (principal); D50.9 Iron deficiency anemia, unspecified; E78.00 Pure hypercholesterolemia, unspecified; E55.9 Vitamin D deficiency, unspecified

== ENCOUNTER → 2024-10-07 08:28 | Outpatient (BNVA) | payer OTHER, SELFPAY | PROVIDERS: PCP Nurse Practitioner Family; Visit Provider Nurse Practitioner Family | DX: R53.1 Weakness (principal); D50.9 Iron deficiency anemia, unspecified; F41.9 Anxiety disorder, unspecified; F32.A Depression, unspecified; E78.00 Pure hypercholesterolemia, unspecified; E55.9 Vitamin D deficiency, unspecified | CPT/HCPCS: 96127 ==

== ENCOUNTER 2024-10-07 09:15 | Outpatient (REF) | payer OTHER, SELFPAY ==
[2024-10-07 12:15] LABS: Iron 17 mcg/dL (30-160); Percent Iron Saturation 5 % (15-50); Total Iron Binding Capacity 363 mcg/dL (228-428); Unsaturated Iron Binding 346 ug/dL
[2024-10-07 12:29] LABS: Ferritin 8 ng/mL (10-250)
[2024-10-07 12:43] LABS: Folate 2.8 ng/mL (> or = 4.0); Vitamin B12 246 pg/mL (200-900)
== END 2024-10-07 09:16 | disposition home or self-care (01) ==
LOC: HO.WFDLDS 09:15
PROVIDERS: Visit Provider Nurse Practitioner Family
DX: D50.9 Iron deficiency anemia, unspecified (principal)
CPT/HCPCS: 36415; 82607; 82728; 82746; 83540

== ENCOUNTER 2025-01-12 09:24 | Outpatient (REF) | payer OTHER, SELFPAY ==
--- OUTSIDE RECORDS SUMMARY | 2025-01-12 10:35 | XMS_ITS | Encounter Summary ---
Author Organization [facility] Address [address] [facility] [address] [place] [phone] Phone Care Team Providers Care Banana Ripening Room Supervisor Name Role Phone Jaja Mars MD Primary Care Provide r Encounter Details Date Type Department Care Team (Latest Contact Info) Description 12/27/2023 Transcribe Orders Virtual Department [address] [place] [address] Emi Staley PA-C [address] [place] [address] [email or web address] Abdominal pain, unspecified abdominal location (Primary Dx) Social History Tobacco Use Types Packs/Day Years Used Date Smoking Tobacco: Every Day Cigarettes Started: 1995; Last attempted to quit: 05/10/2021 Smokeless Tobacco: Never Comments:1 pack a week Alcohol Use Standard Drinks/Week Comments Not Currently 0 (1 standard drink = 0.6 oz pur e alcohol) 20yrs ago Education Answer Date Recorded Are you interested in more education? Not on don e 09/01/2022 Are you concerned about learning? Not on file 09/01/2022 No 09/01/2022 No 09/01/2022 Digital Access Answer Date Recorded No 09/30/2022 No 09/30/2022 Reliable internet access at home? Not on file 09/30/2022 Device with a working camera? Not on file Intimate Partner Violence Answer Date R ecorded Are you denied basic needs s uch as food, clothing, or medical care? No 12/21/2023 In the past 12 months have y ou been in a relationship with a person who hurts, threatens, or tries to control you? No 12/21/2023 Are you denied basic needs s uch as food, clothing, or medical care? No 12/21/2023 In the past 12 months have y ou been in a relationship with a person who hurts, threatens, or tries to control you? 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 Not on file Not on file documented as of this encounter Plan of Treatment Scheduled Orders Name Type Priority Associated Diagnoses Orde r Schedule XR Abdomen Imaging Routine Abdominal pain, unspecified abdominal location Expected: 12/27/2023, Expires: 12/26/2024 documented as of this encounter Visit Diagnoses Diagnosis Abdominal pain, unspecified abdominal location- Primary documented in this encounter Care Teams Banana Ripening Room Supervisor Relationship Specialty Start Date End Date Jaja Mars MD [address] [address] PCP - General Internal Medicine 04/06/23 documented as of this encounter Additional Source Comments The information contained in this document represents components of the legal health record. It is not the complete legal health record.[facility]
--- OUTSIDE RECORDS SUMMARY | 2025-01-12 10:35 | XMS_ITS | Encounter Summary ---
Author Organization [facility] Address [address] [facility] [address] [place] [address] Phone Care Team Providers Care Metallurgical Engineering Technician Name Role Phone Jaja Mars MD Primary Care Provide r Encounter Details Date Type Department Care Team (Late st Contact Info) Description 12/21/2023 Procedure Pass [facility] Endoscopy Admitting Dept Virtual Department [address] [place] [address] Social History Tobacco Use Types Packs/Day Years [...] Diagnoses Not on filedocumented in this encounter Care Teams Metallurgical Engineering Technician Relationship Specialty Start Date End Date Jaja Mars MD [address] [address] PCP - General Internal Medicine 04/06/23 documented as of this encounter Additional Source Comments The information contained in this document represents components of the legal health record. It is not the complete legal health record.[facility]
--- OUTSIDE RECORDS SUMMARY | 2025-01-12 10:36 | XMS_ITS | Encounter Summary ---
Author Organization [facility] Address [address] [facility] [address] [place] [address] Phone Care Team Providers Care Boning Room Worker Name Role Phone Unknown, Unknown Primary Care Provider Jaja Louis MD Primary Care Provide r Encounter Details Date Type Department Care Team (Late st Contact Info) Description 03/22/2023 Procedure Pass [facility], [address] [address] Social History Tobacco Use Types Packs/Day Years [...] with a working camera? Not on file Comments Yes Sex and Gender Information Value Date Recorded [...] on filedocumented in this encounter Care Teams Boning Room Worker Relationship Specialty Start Date End Date Unknown, Unknown, MD PCP - General 11/24/22 04/05/23 Jaja Mars MD [address] [address] PCP - General Internal Medicine 04/06/23 documented as of this encounter Additional Source Comments The information contained in this document represents components of the legal health record. It is not the complete legal health record.[facility]
--- OUTSIDE RECORDS SUMMARY | 2025-01-12 10:36 | XMS_ITS | Encounter Summary ---
Author Organization [facility] Address [address] [facility] [address] [place] [phone] Phone Care Team Providers Care Locate Technician Name Role Phone Unknown, Unknown Primary Care Provider Jaja Louis MD Primary Care Provide r Reason for Referral * MRI/CAT Scan - Closed Specialty Diagnoses / Procedures Referred By Contac t Referred To Contact Radiology Diagnoses Unspecified visual disturbance Procedures MRI Brain CHG MRI BRAIN COMBO Jaja Mars MD Phone: tel: fax: Referral ID Status Reason Start Date Expiration Date Visits Re quested Visits Authorized [id number] Closed 03/19/2023 05/18/2023 1 1 Encounter Details Date Type Department Care Team ([facility] st Contact Info) Description 03/22/2023 Transcribe Orders Virtual Department [address] [place] [id number] Jaja Mars MD [address] [place] [address] MS (multiple sclerosis) (Primary Dx); Unspecified visual disturbance Social History Tobacco Use Types Packs/Day Years [...] on file documented as of this encounter Results * MRI BRAIN (MS) WITH AND WITHOUT CONTRAST (04/17/2023 4:19 PM EST) Anatomical Region Laterality Modality Head Magnetic Resonan ce 04/19/2023 7:39 AM EST Impressions 04/22/2023 7:37 AM EST Scattered subcortical T2/FLAIR hyperintense foci are similar to prior, very nonspecific. These do not demonstrate a pattern specific for demyelinating disease at this time, though not excluded. These can also be seen with chronic migraine headaches or other post-infectious/post-inflammatory etiologies, or can be an incidental finding of little clinical significance. Narrative 04/22/2023 7:37 AM EST MRI BRAIN (MS) WITH AND WITHOUT CONTRAST Referring clinician's provided indication for this examination in Epic: Outside Radiology Order; MULTIPLE SCLEROSIS TECHNIQUE: MRI BRAIN (MS) WITH AND WITHOUT CONTRAST Multi-sequence, multi-planar MRI of the brain was performed before and after intravenous contrast. COMPARISON: Brain MRI 12/01/2021. FINDINGS: Brain Parenchyma: Scattered T2/FLAIR hyperintense foci in the subcortical matter, similar to prior, with no periventricular lesions, definite juxtacortical lesions, or infratentorial lesions. None of the lesions demonstrate enhancement. No evidence of acute infarct, mass lesion, or hemorrhage. Brain Volume: Normal. Ventricular System and Extra-Axial Spaces: Normal. No evidence of midline shift or hydrocephalus. Extracranial Structures: Arterial flow voids in the skull base are present. 10 mm T2/FLAIR hyperintense lesion in the left parietal bone on 5:21 which enhances; as an isolated finding, this is most likely benign, and likely a hemangioma. Procedure Note Ad Rosado MD - 04/22/2023 MRI BRAIN (MS) WITH AND WITHOUT CONTRAST Referring clinician's provided indication for this examination in [facility]:Outside Radiology Order; MULTIPLE SCLEROSIS TECHNIQUE: MRI BRAIN (MS) WITH AND WITHOUT CONTRAST Multi-sequence, multi-planar MRI of the brain was performed before andafter intravenous contrast. COMPARISON: Brain MRI 12/01/2021. FINDINGS: Brain Parenchyma: Scattered T2/FLAIR hyperintense foci in the subcorticalmatter, similar to prior, with no periventricular lesions, definitejuxtacortical lesions, or infratentorial lesions. None of the lesionsdemonstrate enhancement. No evidence of acute infarct, mass lesion, orhemorrhage. Brain Volume: Normal. Ventricular System and Extra-Axial Spaces: Normal. No evidence of midlineshift or hydrocephalus. Extracranial Structures: Arterial flow voids in the skull base arepresent. 10 mm T2/FLAIR hyperintense lesion in the left parietal bone on5:21 which enhances; as an isolated finding, this is most likely benign,and likely a hemangioma. IMPRESSION: Scattered subcortical T2/FLAIR hyperintense foci are similar to prior,very nonspecific. These do not demonstrate a pattern specific fordemyelinating disease at this time, though not excluded. These can also beseen with chronic migraine headaches or otherpost-infectious/post-inflammatory etiologies, or can be an incidentalfinding of little clinical significance. us Jaja Mars MD IMG MR HEAD/NECK Treva l Result documented in this encounter Visit Diagnoses Diagnosis MS (multiple sclerosis)- Primary Multiple sclerosis Unspecified visual disturbance Unspecified visual disturbance documented in this encounter Care Teams Locate Technician Relationship Specialty Start Date End Date Unknown, Unknown, MD PCP - General 11/24/22 04/05/23 Jaja Mars MD [address] [address] PCP - General Internal Medicine 04/06/23 documented as of this encounter Additional Source Comments The information contained in this document represents components of the legal health record. It is not the complete legal health record.[facility]
--- OUTSIDE RECORDS SUMMARY | 2025-01-12 10:36 | XMS_ITS | Clinical Summary ---
Author Organization [facility] Address [address] [facility] [address] [place] [phone] Phone Care Team Providers Care Tile Setter Supervisor Name Role Phone Jaja Mars MD Primary Care Provide r Allergies Active Allergy Reactions Criticality Noted Date Comments Ibuprofen 06/30/2019 Bupropion Hcl Dizziness 09/22/2020 Epinephrine 08/26/2021 convulsions Gadolinium-Containing Contrast Media Hives Medium 04/17/2023 Hives on face, neck and chest reported by patient during MRI at [facility] 2019 Penicillins 06/30/2019 Turmeric (Curcuma Longa) Hives 12/19/2023 Medications LORazepam (ATIVAN) 1 MG tablet Take 1 mg by mouth daily as needed. Active therapeutic multivitamin tablet Take 1 tablet by mouth daily. Active Active Problems Problem Noted Date Diagnosed Date History of recurrent miscarriages 09/22/2020 Overview (10/20/2020): Eval to date: SHG: NL 46 XX, LAC neg, ACL neg, PT gene mutation neg, A1C 5.4, FSH 2.7, TSH 1.64, Factor V neg Assessment & Plan (10/20/2020 2:29 PM EDT): Will treat with clomid to increase hormone levels and add post-ovulation progesterone. All questions answered. Assessment & Plan (09/22/2020 4:21 PM EDT): Will need to get SHG done to r/o cavitary lesions. If that is normal, recommend treatment with clomid to increase hormonal levels as well as luteal phase progesterone supplementation. If she has another loss, then recommend consult with RE possible IVF, preimplantation genetics History of weight loss surgery 06/30/2019 Overview (06/30/2019): Gastric sleeve 12/27/2018- Tanya has an appointment with her surgeon on 07/02/2019, will discuss any recommendations at that time. Resolved Problems Problem Noted Date Diagnosed Date Resolved Date Inevitable 07/18/2019 08/19/19 20 Overview (07/18/2019): 07/18/2019: patient seen in ED with bleeding. US performed showing an irregular gestational sac in the JOSE G that is significantly smaller than dates. Multigravida of advanced mat ernal age in first trimester 06/30/2019 08/19/2019 Overview (06/30/2019): Undecided at intake Group PN care? * Rh * GC/Chlam * Tdap * Flu * Hgb * GTT * GBS * PPBC * screening - counsyl, AFP, level 2 Immunizations Immunization Administration Dates Next Due Influenza Quadrivalent MDCK Preservative Free IM 02/19/2019 Family History Medical History Relation Comments Diabetes Father Hypertension Father Emphysema Mother Hyperlipidemia Mother Thyroid disease Mother Infertility Paternal Aunt Infertility Miscarriages / Stillbirths Sister 2 9 mis cariages several before each fullterm Bipolar disorder Sister 3 Drug abuse Sister 3 Relation Status Comments Daughter Alive Father Alive Mother Alive Paternal Aunt Sister 1 Alive Sister 2 Sister 3 Social History Tobacco Use Types Packs/Day Years Used Date Smoking Tobacco: Every Day Cigarettes Started: 1995; Last attempted to quit: 05/10/2021 Smokeless Tobacco: Never Tobacco Cessation:Ready to Q uit: Not Asked; Counseling Given: Not Answered Comments:1 pack a week Alcohol Use Standard [...] file Not on file Not on file Last Filed Vital Signs Vital Sign Reading Time Taken Comments Blood Pressure 120/67 12/21/2023 2:14 PM EDT Pulse 59 12/21/2023 2:14 PM EDT Temperature 36.1 C (96.9 F) 12/21/2023 1:58 PM EDT Respiratory Rate 16 12/21/2023 2:14 PM EDT Oxygen Saturation 97% 12/21/2023 2:14 PM EDT Inhaled Oxygen Concentration - - Weight 75.8 kg (167 lb) 12/19/2023 3:07 PM EDT Height 157.5 cm (5' 2 ) 12/19/2023 3:07 PM EDT Body Mass Index 30.54 12/19/2023 3:07 PM EDT Plan of Treatment Health Maintenance Due Date Last Done Comments Adult Td,Tdap Booster 1981 DEPRESSION SCREENING 1993 SMOKING Hx and SMOKELESS TOBACCO SCREENING 1994 PNEUMOCOCCAL VACCINES (0-49 years) (1 of 2 - PCV) 2000 PAP SMEAR 2002 MAMMOGRAM 2021 INFLUENZA VACCINE (#1) 2024 02/19/2019 COVID-19 VACCINE (3 - 2024-2 6 season) 2025 03/25/2022, 07/06/2021 SCREENING FOR DIABETES 10/08/2026 10/09/2023 HEPATITIS C SCREENING Completed 10/19/2021 , 07/15/2019 HIV ONE-TIME SCREENING (18-6 5 YEARS) Completed 10/19/2021 HEPATITIS A VACCINES Aged Out No long er eligible based on patient's age to complete this topic HIB VACCINES Aged Out No longer eligi ble based on patient's age to complete this topic MENINGOCOCCAL VACCINES (ACWY) Aged Out No longer eligible based on patient's age to complete this topic MENINGOCOCCAL VACCINES (B) Aged Out N o longer eligible based on patient's age to complete this topic Medical Devices Implanted Type Area Fiber Optic Assembly Worker Device Identifier Shelf Expiration Date Model / Serial / Lot Clip Hemostasis 360deg 235cm Resolution 360 Latex Free 2.8mm Channel Bx/20ea - [id number] Implanted:Qty: 1 on 12/21/2023 by Agustin Garcia MD at [facility] [employer] [id number] / / Procedures Procedure Name Priority Date/Time Associated Diagnosis Comments HEPATITIS C ANTIBODY, QUALITATIVE Routine 10/19/2021 2:54 PM EDT Fertility testing from Last 3 Months or Most Recently Relevant to Health Maintenance Results * Hepatitis C antibody, qualitative (10/19/2021 2:54 PM EDT) HCV NON-REACTIV E NON-REACTI VE [facility] Blood 10/19/2021 2:54 PM EDT 10/19/2021 3:07 PM EDT us Anna Dykes MD LAB BLOOD ORDERABLES Final Result [facility] [address] [place] [address] from Last 3 Months or Most Recently Relevant to Health Maintenance Insurance CIG[employer] TPA CIGNA TPA CIGNA TPA CIGNA TPA [facility] Address: [address] [phone] [employer] C[employer] TPA Care Teams Tile Setter Supervisor Relationship Specialty Start Date End Date Jaja Mars MD [address] [address] PCP - General Internal Medicine 04/06/23 Additional Source Comments The information contained in this document represents components of the legal health record. It is not the complete legal health record.[facility]
--- OUTSIDE RECORDS SUMMARY | 2025-01-12 10:36 | XMS_ITS | Encounter Summary ---
Author Organization [facility] Address [address] [facility] [address] [place] [address] Phone Care Team Providers Care It Risk And Assurance Senior Manager Name Role Phone Jaja Mars MD Primary Care Provide r Encounter Details Date Type Department Care Team (Latest Contact Info) Description 05/30/2023 Transcribe Orders Virtual Department [address] [place] [address] Humberto Rajput MD [address] [place] [address], [address] [place] [address] [email or web address] Bilateral numbness and tingling of arms and legs (Primary Dx); White matter disease; MS (multiple sclerosis) Social History Tobacco Use Types Packs/Day Years [...] as of this encounter Visit Diagnoses Diagnosis Bilateral numbness and tingling of arms and legs- Primary White matter disease MS (multiple sclerosis) Multiple sclerosis documented in this encounter Care Teams It Risk And Assurance Senior Manager Relationship Specialty Start Date End Date Jaja Mars MD [address] [address] PCP - General Internal Medicine 04/06/23 documented as of this encounter Additional Source Comments The information contained in this document represents components of the legal health record. It is not the complete legal health record.[facility]
--- OUTSIDE RECORDS SUMMARY | 2025-01-12 10:36 | XMS_ITS | Encounter Summary ---
Author Organization [facility] Address [address] [place] [phone] Phone Care Team Providers Care Subgrade Roller Operator Name Role Phone Unknown, Unknown Primary Care Provider Jaja Louis MD Primary Care Provide r Reason for Referral * Outpatient Procedure - Closed Specialty Diagnoses / Procedures Referred By Contac t Referred To Contact Radiology Diagnoses Visual loss Procedures US Carotid Duplex Complete (Bilateral) Humberto Rajput MD [address] [place] [address], [address] [place] [id number] Phone: tel: fax: [email or web address] Referral ID Status Reason Start Date Expiration Date Visits Re quested Visits Authorized [id number] Closed 04/02/2023 1 1 Encounter Details Date Type Department Care Team (Latest Contact Info) Description 04/02/2023 Transcribe Orders Virtual Department [address] [place] [phone] Humberto Rajput MD [address] [place] [address], [address] [place] [phone] [email or web address] Visual loss (Primary Dx) Social History Tobacco Use Types [...] documented as of this encounter Results * US Carotid Duplex Complete (Bilateral) (04/06/2023 2:32 PM EST) Anatomical Region Laterality Modality Heart, Thoracic Vasculature, Neck Ultrasound 04/07/2023 3:40 PM EST Impressions 04/07/2023 3:44 PM EST 1. No evidence of 50% or greater stenosis in the right or left internal carotid artery. Narrative 04/07/2023 3:44 PM EST US CAROTID DUPLEX COMPLETE (BILATERAL) Referring clinician's provided indication for this examination in [facility]: Outside Radiology Order; VISUAL LOSS TECHNIQUE: Ultrasound Carotid Duplex with color flow Doppler and spectral waveform Doppler. Arterial inflow was assessed. COMPARISON: There is no prior study available for comparison FINDINGS: Right Common carotid artery: Proximal: No significant stenosis. Mid: No significant stenosis. Distal: No significant stenosis. Internal carotid artery: Proximal: No significant stenosis. Mid: No significant stenosis. Distal: No significant stenosis. External carotid artery: No significant stenosis. Vertebral artery: Antegrade. Left Common carotid artery: Proximal: No significant stenosis. Mid: No significant stenosis. Distal: No significant stenosis. Internal carotid artery: Proximal: No significant stenosis. Mid: No significant stenosis. Distal: No significant stenosis. External carotid artery: No significant stenosis. Vertebral artery: Antegrade. Right Peak Systolic Velocities: Proximal CCA: 88 cm/s Distal CCA: 98 cm/s Proximal ICA: 96.9 cm/s Mid ICA: 93 cm/s Distal ICA: 110 cm/s ECA: 104 cm/s Vertebral: 56 cm/s Right End Diastolic Velocities: Proximal CCA: 21 cm/s Distal CCA: 32 cm/s Proximal ICA: 46.6 cm/s Mid ICA: 44 cm/s Distal ICA: 42 cm/s ECA: 24 cm/s Vertebral: 22 cm/s Left Peak Systolic Velocities: Proximal CCA: 96 cm/s Distal CCA: 92 cm/s Proximal ICA: 91.1 cm/s Mid ICA: 89 cm/s Distal ICA: 101 cm/s ECA: 78 cm/s Vertebral: 66 cm/s Left End Diastolic Velocities: Proximal CCA: 27 cm/s Distal CCA: 36 cm/s Proximal ICA: 42.8 cm/s Mid ICA: 41 cm/s Distal ICA: 51 cm/s ECA: 18 cm/s Vertebral: 31 cm/s Abbreviations: CCA = Common Carotid Artery. ICA = Internal Carotid Artery. ECA = External Carotid Artery. Vert = Vertebral Artery. ICA/CCA ratio = maximal ICA PSV divided by the maximal CCA PSV. Procedure Note Claudia Parrish MD - 04/07/2023 US CAROTID DUPLEX COMPLETE (BILATERAL) Referring clinician's provided indication for this examination in [facility]:Outside Radiology Order; VISUAL LOSS TECHNIQUE: Ultrasound Carotid Duplex with color flow Doppler and spectralwaveform Doppler. Arterial inflow was assessed. COMPARISON: There is no prior study available for comparison FINDINGS: Right Common carotid artery: Proximal: No significant stenosis. Mid: No significant stenosis. Distal: No significant stenosis. Internal carotid artery: Proximal: No significant stenosis. Mid: No significant stenosis. Distal: No significant stenosis. External carotid artery: No significant stenosis. Vertebral artery: Antegrade. Left Common carotid artery: Proximal: No significant stenosis. Mid: No significant stenosis. Distal: No significant stenosis. Internal carotid artery: Proximal: No significant stenosis. Mid: No significant stenosis. Distal: No significant stenosis. External carotid artery: No significant stenosis. Vertebral artery: Antegrade. Right Peak Systolic Velocities: Proximal CCA: 88 cm/s Distal CCA: 98 cm/s Proximal ICA: 96.9 cm/s Mid ICA: 93 cm/s Distal ICA: 110 cm/s ECA: 104 cm/s Vertebral: 56 cm/s Right End Diastolic Velocities: Proximal CCA: 21 cm/s Distal CCA: 32 cm/s Proximal ICA: 46.6 cm/s Mid ICA: 44 cm/s Distal ICA: 42 cm/s ECA: 24 cm/s Vertebral: 22 cm/s Left Peak Systolic Velocities: Proximal CCA: 96 cm/s Distal CCA: 92 cm/s Proximal ICA: 91.1 cm/s Mid ICA: 89 cm/s Distal ICA: 101 cm/s ECA: 78 cm/s Vertebral: 66 cm/s Left End Diastolic Velocities: Proximal CCA: 27 cm/s Distal CCA: 36 cm/s Proximal ICA: 42.8 cm/s Mid ICA: 41 cm/s Distal ICA: 51 cm/s ECA: 18 cm/s Vertebral: 31 cm/s Abbreviations: CCA = Common Carotid Artery. ICA = Internal Carotid Artery. ECA =External Carotid Artery. Vert = Vertebral Artery. ICA/CCA ratio = maximalICA PSV divided by the maximal CCA PSV. IMPRESSION: 1. No evidence of 50% or greater stenosis in the right or left internalcarotid artery. us Humberto Rajput MD US NEUROVASCULAR Final Re sult documented in this encounter Visit Diagnoses Diagnosis Visual loss- Primary Unspecified visual loss Visual loss Unspecified visual loss documented in this encounter Care Teams Subgrade Roller Operator Relationship Specialty Start Date End Date Unknown, Unknown, MD PCP - General 11/24/22 04/05/23 Jaja Mars MD [address] [address] PCP - General Internal Medicine 04/06/23 documented as of this encounter Additional Source Comments The information contained in this document represents components of the legal health record. It is not the complete legal health record.[facility]
[2025-01-12 15:30] LABS: Hematocrit 31.3 % (37.0-47.0); Hemoglobin 9.7 g/dl (12.0-16.0); Mean Corpuscular HGB Conc 31.0 g/dl (31.0-35.0); Mean Corpuscular Hemoglobin 21.2 pg (27.0-33.0); Mean Corpuscular Volume 68.5 fL (80.0-98.0); NRBC Abs Auto 0.000 X10*3/uL (0.0-0.012); NRBC Pct Auto 0.0 /100WBC (0.0-0.2); Platelet Count 275 X10*3/uL (160-400); Red Blood Count 4.57 X10*6/uL (4.20-5.50); White Blood Count 7.8 X10*3/uL (4.8-10.8)
[2025-01-12 16:08] LABS: Folate 3.9 ng/mL (> or = 4.0); Vitamin B12 218 pg/mL (200-900)
[2025-01-12 16:33] LABS: Iron 21 mcg/dL (30-160); Percent Iron Saturation 6 % (15-50); Total Iron Binding Capacity 367 mcg/dL (228-428); Unsaturated Iron Binding 346 ug/dL
[2025-01-12 16:46] LABS: Ferritin 7 ng/mL (10-250)
== END 2025-01-12 09:25 | disposition home or self-care (01) ==
LOC: HO.WFDLDS 09:24
PROVIDERS: Visit Provider Nurse Practitioner Family
DX: D50.9 Iron deficiency anemia, unspecified (principal); E53.8 Deficiency of other specified B group vitamins
CPT/HCPCS: 36415; 82607; 82728; 82746; 83540; 85027

== ENCOUNTER 2025-02-02 08:28 | Outpatient (AMB) | payer OTHER, SELFPAY ==
--- NOTE | 2025-02-02 08:29 | MHC.PC.OV ---
Vital Signs 02/02/25 08:38 Height 5 ft 2.5 in Weight 188 lb 6 oz BMI 33.9 BP 115/65 Blood Pressure Location Rt brachial Position Sitting Respiration 16 Pulse 84 Pulse Source Pulse Oximeter Temp 97.9 F Temp Source Oral Pulse Oximetry (%) 98 Oxygen Delivery Method Room Air Intake Visit Reasons: 1 mos MARISOL, anxiety, depression RE -Rescheduled Intake Note: patient here for 1 month follow up on anxiety and depression. 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: No Is last menstrual period known: Yes Last menstrual period: 01/21/25 Post menopausal: No Patient : No Allergies buspirone Allergy (Severe, Verified 02/02/25 08:34) loss of balance Penicillins Allergy (Mild, Verified 02/02/25 08:34) hives tumeric Allergy (Severe, Uncoded 10/07/24 08:57) throat swelling enteric Allergy (Intermediate, Uncoded 10/07/24 08:57) Vomiting iv contrast Allergy (Mild, Uncoded 10/07/24 08:57) Hives Tobacco use date assessed: 02/02/25 Dental Screening Dental Screen Date: 02/02/25 Did you have a dental visit in the last 12 months?: Yes Did you have a dental problem in the last 6 months where you did not have access to dental care?: No Was dental information given to patient?: Patient has dentist HPI HPI Comments History of Present Illness Details 44-year-old female presents for MARISOL, anxiety, and depression follow-up. She admits to taking vitamin D3 and folic acid as prescribed. She notes that she has been taking 65mg of elemental iron twice daily. She stopped taking escitalopram and hydroxyzine 3 weeks ago because she felt like a zombie. She feels like my body is disconnected to me. She also noted increase in falls while on the medication, no major fall since she stopped the medications. She attributes her anxiety and depressive symptoms to neurological and GI symptoms. She has h/o brain lesions with symptoms including intermittent memory loss, muscle weakness, falls, and tingling and numbness of her hands.. She notes persistent oil, greasy, soft bowel movements and loss of bowel control for the past 4 years; two days ago noticed bright red blood in her stool. She notes that she had a colonoscopy with [facility] with benign polyps. She had gastric sleeve procedure 6 years ago. She was followed [facility] and was last seen a year and half ago; she contacted them for a follow up appointment but has not heard back from them. She reports current anxiety and depressive symptoms at baseline. She believes her anxiety and depressive symptoms are related to her neurological and GI symptoms. She does not wish to continue to take psychotropic medications. She reports passive SI without a plan, denies HI/AH/VH. She requests referrals to a neurologist and broomcorn scraper. [facility] Medical History (Updated 02/04/25 @ 08:18 by Marilee Brunner CNP) Cervical fusion syndrome Imbalance Memory loss Headache Incontinence in female Back disorder History of palpitations Sinusitis Asthma Insomnia Memory change Cervicalgia Diplopia Numbness and tingling in both hands Weakness Fusion of spine of cervical region Depression Anxiety Multiple sclerosis Surgical History (Updated 09/12/24 @ 10:05 by Ingrid Boo MA) History of tonsillectomy H/O removal of cyst H/O section H/O gastric sleeve History of cholecystectomy Family History (Updated 09/12/24 @ 10:03 by Ingrid Boo MA) Family/Other Tumors Maternal Grandmother Dementia Thyroid disorder Lung cancer Sister Alcohol abuse FH: mental illness High cholesterol Thyroid disorder Mother Alcohol abuse FH: mental illness High cholesterol Thyroid disorder Maternal Aunt Alcohol abuse Maternal Aunt No problems noted. 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 1. Little interest or pleasure in doing things: nearly every day 2. Feeling down, depressed, or hopeless: nearly every day 3. Trouble falling or staying asleep, or sleeping too much: nearly every day 4. Feeling tired or having little energy: more than half the days 5. Poor appetite or overeating: several days 6. Feeling bad about yourself - or that you are a failure or have let yourself or your family down: nearly every day 7. Trouble concentrating on things, such as reading the newspaper or watching television: more than half the days 8. Moving or speaking so slowly that other people could have noticed. Or the opposite - being so fidgety or restless that you have been moving around a lot more than usual: several days 9. Thoughts that you would be better off or of hurting yourself in some way: several days Total score: 19 Depression Screening Interpretation: Positive Depression Screening Done: Yes 78971 - PHQ-9 Billing: Yes Source: Developed by Drs. Savage Scott, Marycruz Stark, Rancho Camejo and colleagues, with an educational dee from [employer]. Thrive Questionnaire Date Thrive assessed: 09/12/24 I am a: Patient What is your living situation today?: I have a steady place to live Within the past 12 months, did the food you bought not last and you didn't have the money to get more?: I choose not to answer this question Within the past 12 months, did you worry whether your food would run out before you got money to buy more?: I choose not to answer this question Do you have trouble paying for medicines?: I choose not to answer this question Do you have trouble getting transportation to medical appointments?: I choose not to answer this question Do you have trouble paying your heating and electricity bill?: I choose not to answer this question Do you have trouble taking care of your child, family member or friend?: I choose not to answer this question Do you have trouble with day-to-day activities such as bathing, preparing meals, shopping, managing finances, etc.?: I choose not to answer this question Are you currently unemployed and looking for a job?: I choose not to answer this question Are you interested in more education?: I choose not to answer this question Please select the resources that you would like help with: None Currently or been in a relationship where the following occur: I choose not to answer THRIVE Score: 0 KAIDEN-7 AMB Questionnaire KAIDEN-7 Date KAIDEN - 7 assessed: 02/03/25 Feeling nervous, anxious, or on edge: 3 = Nearly every day Not being able to stop or control worryin = Nearly every day Worrying too much about different things: 3 = Nearly every day Trouble relaxin = Nearly every day Being so restless that it is hard to sit still: 3 = Nearly every day Becoming easily annoyed or irritable: 3 = Nearly every day Feeling afraid as if something awful might happen: 3 = Nearly every day Total KAIDEN-7 score (0-4 normal; 5-9 mild; 10-14 moderate; 15-21 severe): 21 Source: Developed by Drs. Savage Scott, Marycruz Stark, Rancho Camejo and colleagues, with an educational dee from [employer]. KAIDEN-7 Assessment Billing KAIDEN-7 Assessment Tool: KAIDEN-7 Assessment 17496 Review of Systems Const Details: Const Denies chills, Denies fatigue, Denies fever(s), Denies headache(s) and Denies weakness ENT Denies dizziness and Denies headache(s) Card Denies chest pain, Denies lightheadedness, Denies dyspnea and Denies other (Palpitations) Resp Denies cough, Denies dyspnea, Denies wheezing and Denies other ( shortness of breath) GI Denies abdominal pain, Denies melena, Denies hematochezia, Denies change in bowel habits, Denies dyspepsia and Denies nausea Denies hematuria and Denies dysuria Musc Denies abnormal gait, Denies myalgias, Denies arthralgias, Reports numbness and Reports tingling Skin/Breast Denies rash, Denies unusual bruising and Denies wounds Neuro Denies abnormal gait, Denies dizziness, Denies headache(s), Denies memory loss, Reports numbness, Denies Sensory deficit (Neuro), Reports tingling and Denies weakness Psych Reports anxiety, Reports depression, Reports memory loss Endo Denies cold intolerance, Denies fatigue, Denies heat intolerance, Denies polydipsia and Denies polyuria Aller/Immun Denies wheezing Physical exam (Primary Care) Vital Signs: Last Vital Signs Temp 97.9 F 02/02/25 08:38 Pulse 84 02/02/25 08:38 Resp 16 02/02/25 08:38 BP 115/65 02/02/25 08:38 Pulse Ox 98 02/02/25 08:38 Oxygen Delivery Method Room Air 02/02/25 08:38 BMI result Body Mass Index 33.9 Tobacco/Smoking Status: Tobacco use Status Tobacco use date assessed 02/02/25 02/02/25 08:41 Patient Tobacco Use Status Current everyday Tobacco 02/02/25 08:41 e-Cigarette/Vaping Use Never Used 02/02/25 08:41 PHQ-9: PHQ-9 Score PHQ-9: Total score 19 02/03/25 16:15 Depression Screening Interpretation: Positive Thrive Assessment: Date of Thrive Assessment Date Thrive assessed 09/12/24 02/02/25 08:41 Currently or been in a relationship where the following occur: I choose not to answer Const Other: General: no acute distress and well developed Nutritional Appearance: well nourished Orientation/consciousness: patient oriented x3 HENMT Head: Yes normocephalic and Yes atraumatic Eyes General: appearance normal, both eyes and all related structures Pupils: Equal, round and reactive pupils present EOM: EOMs intact bilaterally Resp Effort & Inspection: normal respiratory effort Auscultation: clear to auscultation bilaterally Cardio Rate: regular rate Rhythm: regular rhythm Heart sounds: S1 normal heart sound present, S2 normal heart sound present, no gallops, no murmurs and no rubs GI Palpation (GI): No Abdominal aortic bruit present, Soft to palpation, nontender, No hepatosplenomegaly present and No Rebound tenderness present Auscultation: normal bowel sounds General: Yes no CVA tenderness Back/Spine/Pelvis Back: no CVA tenderness Cervical Spine: cervical ROM normal and No Cervical spine tenderness Thoracic/Lumbar Spine: thoraco-lumbar ROM normal, No pain with thoraco-lumbar ROM, No thoracic spinal tenderness and No lumbar spinal tenderness Extrem General: Yes normal to inspection, No edema and No calf tenderness Skin General: warm and dry. Normal skin color. Normal skin turgor Neuro General: patient oriented x3, gait normal and no focal neuro deficit Cranial nerves: Yes Equal, round and reactive pupils present Cognition (Neuro): normal cognition Gait exam (Neuro): Normal gait present Sensory Exam: No Sensory deficit (Neuro) Psych Appearance: grossly normal Affect: normal affect Attitude: cooperative Thought process: Normal thought process present Coding Level of Care Code Est Pt Level 4 (49557) Diagnoses Brain lesion G93.9 Memory change R41.3 Numbness and tingling in both hands R20.0; R20.2 Multiple falls R29.6 Loose stools R19.5 History of colon polyps Z86.0100 Anxiety F41.9 Major depressive disorder F32.9 Major depression episode severity: unspecified Iron deficiency anemia D50.9 Folate deficiency E53.8 B12 deficiency E53.8 Hypercholesterolemia E78.00 Additional Codes KAIDEN-7 Assessment Billing - KAIDEN-7 Assessment Tool: KAIDEN-7 Assessment 22929 ([id number]) PHQ-9 - 56801 - PHQ-9 Billing: Yes ([id number]) Time Spent (min) 65 Assessment & Plan Assessment & Plan (1) Brain lesion: Code(s): G93.9 - Disorder of brain, unspecified Category: Medical Plan: She stopped taking escitalopram and hydroxyzine 3 weeks ago because she felt like a zombie. She feels like my body is disconnected to me. She also noted increase in falls while on the medication, no major fall since she stopped the medications. She attributes her anxiety and depressive symptoms to neurological and GI symptoms. She has h/o brain lesions with symptoms including intermittent memory loss, muscle weakness, falls, and tingling and numbness of her hands.. She notes persistent oil, greasy, soft bowel movements and loss of bowel control for the past 4 years; two days ago noticed bright red blood in her stool. She notes that she had a colonoscopy with [facility] with benign polyps. She had gastric sleeve procedure 6 years ago. She was followed by [facility] neurology and was last seen a year and half ago; she contacted them for a follow up appointment but has not heard back from them. She reports current anxiety and depressive symptoms at baseline. She believes her anxiety and depressive symptoms are related to her neurological and GI symptoms. She does not wish to continue to take psychotropic medications. She denies SI/HI/AH/VH. She requests referrals to a neurologist and broomcorn scraper. Normal physical exam. No focal neuro deficit. Vital signs stable. Referred to Neurology and Gastroenterology. Follow-up with worsening or new symptoms. Verbalized understanding and agreed with the plan. (2) Memory change: Code(s): R41.3 - Other amnesia Category: Medical Plan: Plan as above. (3) Numbness and tingling in both hands: Code(s): R20.0 - Anesthesia of skin; R20.2 - Paresthesia of skin Category: Medical Plan: Plan as above. (4) Multiple falls: Code(s): R29.6 - Repeated falls Category: Medical Plan: Instructed on safety to prevent falls. Plan as above. (5) Loose stools: Code(s): R19.5 - Other fecal abnormalities Category: Medical Plan: Plan as above. (6) History of colon polyps: Code(s): Z86.0100 - Personal history of colon polyps, unspecified Category: Medical Plan: Plan as above. (7) Anxiety: Code(s): F41.9 - Anxiety disorder, unspecified Category: Medical Plan: Reports anxiety and depressive symptoms which she attributes to neuro and GI symptoms. She notes passive SI w/o a plan. PHQ-9 and KAIDEN-7 scores revealed moderately severe depression and severe anxiety respectively. Declines medication treatment at this time. Neuro and GI referral made. Routine exercise encouraged. Follow-up with worsening or new symptoms. Verbalized understanding and agreed with the plan. (8) Major depressive disorder: Code(s): F32.9 - Major depressive disorder, single episode, unspecified Category: Medical Qualifiers: Major depression episode severity: unspecified Plan: Plan as above. (9) Iron deficiency anemia: Code(s): D50.9 - Iron deficiency anemia, unspecified Category: Medical Plan: Recent H/H is low, 9.5/31.2 respectively, previous level was 9.7/31.3 respectively; MCV is low, 68.9 from 68.5; iron is low, 18 from 21; ferritin is low, 9 from 7; folate is low, 3.5 from 3.9; vitamin B12 is low, 195. She notes that she takes 65 mg of otc elemental iron twice daily and folic acid as prescribed. Likely due to malabsorption secondary to gastric sleeve. Ferrous sulfate 325 mg twice daily ordered; advised to take as prescribed. Vitamin-C 1000 mg daily ordered; advised to take as prescribed to enhance iron absorption. Continue to take folic acid as prescribed. Vitamin B12 1000 mcg daily ordered; advised to take as prescribed. Stat referral made to [facility] hematology/oncology. Advised to perform blood work and follow-up in 1 month, if she has not been seen by Hematology/Oncology. Return sooner with symptoms or concerns. Verbalized understanding and agreed with the plan. (10) Folate deficiency: Code(s): E53.8 - Deficiency of other specified B group vitamins Category: Medical Plan: Plan as above. (11) B12 deficiency: Code(s): E53.8 - Deficiency of other specified B group vitamins Category: Medical Plan: Plan as above. (12) Hypercholesterolemia: Code(s): E78.00 - Pure hypercholesterolemia, unspecified Category: Medical Plan: Recent total cholesterol and LDL levels are elevated, 260 and 191 respectively; previous level were 254 and 190 respectively. Advised to limit foods high in saturated fat and avoid foods high in trans fat. Routine exercise encouraged. Will recheck lipid panel level in 2 months. Verbalized understanding and agreed with the plan. Plan Total time for this visit was 75 minutes. This include 45 minutes with patient doing chronic disease management/treatment, and 20 minutes reviewing, coordinating plan of care, and documenting. Orders: Orders Lipid Panel 02/02/25 E78.00 - Pure hypercholesterolemia, unspecified Vitamin D 25-OH Total 02/02/25 E55.9 - Vitamin D deficiency, unspecified Vitamin B12 and Folate 02/02/25 D50.9 - Iron deficiency anemia, unspecified Vitamin B12 and Folate 1 Month D50.9 - Iron deficiency anemia, unspecified, E53.8 - Deficiency of other specified B group vitamins Ferritin 1 Month D50.9 - Iron deficiency anemia, unspecified Complete Blood Count no Diff 02/02/25 D50.9 - Iron deficiency anemia, unspecified Ferritin 02/02/25 D50.9 - Iron deficiency anemia, unspecified IRON PROFILE 02/02/25 D50.9 - Iron deficiency anemia, unspecified Complete Blood Count no Diff 1 Month D50.9 - Iron deficiency anemia, unspecified, E53.8 - Deficiency of other specified B group vitamins IRON PROFILE 1 Month D50.9 - Iron deficiency anemia, unspecified Referrals Gastroenterology Referral R19.5 - Other fecal abnormalities, Z86.0100 - Personal history of colon polyps, unspecified Hematology & Oncology Referral D50.9 - Iron deficiency anemia, unspecified, E53.8 - Deficiency of other specified B group vitamins Neurology Referral G93.9 - Disorder of brain, unspecified, R20.0 - Anesthesia of skin, R20.2 - Paresthesia of skin, R41.3 - Other amnesia Medications: New ascorbic acid (vitamin C) 1,000 mg PO DAILY 90 tabs 1RF 90 days ferrous sulfate 325 mg PO BID 60 tabs 3RF 30 days cyanocobalamin (vitamin B-12) 1,000 mcg PO DAILY 30 tabs 3RF 30 days
[2025-02-02 08:38] VITALS: BP 115/65; PULSE 84; RESP 16; TEMP 36.6; O2SAT 98; BMI 33.9
--- OUTSIDE RECORDS SUMMARY | 2025-02-02 08:51 | XMS_ITS | Clinical Summary ---
Author Organization [employer] Address [address] [place] [address] [address] [place] [address] Care Team Providers Care Charge Aide Name Role Phone Unavailable Primary Care Provider Unavailabl e Allergies Active Allergy Reactions Criticality Noted Date Comments Ibuprofen Hives 07/01/2024 Epinephrine Hives 07/01/2024 Penicillins Hives 07/01/2024 Red Dye 07/01/2024 Turmeric Hives 07/01/2024 Medications No known medications Active Problems Problem Noted Date Diagnosed Date Dental caries extending into pulp 07/01/2024 Symptomatic irreversible pulpitis 07/01/2024 Dental abscess 07/01/2024 Social History Tobacco Use Types Packs/Day Years [...] Use Screening 1993 Family Planning (PISQ) 1996 HPV Vaccines (1 - 3-dose series) 1996 Hepatitis C Screening 1999 DTaP/Tdap/Td Vaccines (1 - Tdap) 2000 Hepatitis B Vaccines (1 of 3 - 19+ 3-dose series) 2000 Pap Smear 2002 Cervical Cancer Screening 2011 HPV/Cotest 2011 Dental Prophylaxis 07/23/2015 01/21/2015, 1 , 01/26/2003 Dental Oral Exam 06/02/2021 11/29/2020, , 02/06/2011, Additional history exists Mammogram 2021 Dental X-Ray: Bitewings 11/30/2021 11/30/19 21, 01/21/2015, 02/06/2011 COVID-19 Vaccine ( - season) 2025 Influenza Vaccine (#1) 2025 07/30/2020, 2018 Tobacco Screening 07/22/2025 07/22/2024 Dental [...] Years) and At-Risk Patients (6 to 49) Years Aged Out No longer eligible based on patient's age to complete this topic RSV under 20 months Aged Out No longe r eligible based on patient's age to complete this topic Rotavirus Vaccines Aged Out No longer eligible based on patient's age to complete this topic Procedures Procedure Name Priority Date/Time Associated Diagnosis Comments PANORAMIC RADIOGRAPHIC IMAGE Routine 07/01/2024 11:30 AM EST INTRAORAL - COMPLETE SERIES OF RADIOGRAPHIC IMAGES Routine 11/29/2020 12:00 AM EDT PERIODIC ORAL EVALUATION - ESTABLISHED PATIENT Routine 11/29/2020 12:00 AM EDT PROPHYLAXIS - ADULT Routine 01/21/2015 1 2:00 AM EDT from Last 3 Months or Most Recently Relevant to Health Maintenance Insurance [facility] STAND[facility] [address] [id number] DENTAL - [employer] DENTAL PPO
--- OUTSIDE RECORDS SUMMARY | 2025-02-02 08:51 | XMS_ITS | Encounter Summary ---
Author Organization [employer] Address [address] [facility] [address] [place] [address] Care Team Providers Care Rn Or Lvn Name Role Phone Unavailable Primary Care Provider Unavailabl e Encounter Details Date Type Department Care Team (Late st Contact Info) Description 01/11/2023 Abstract [facility] [address] [place] [address] Sherry Stubbs, BRICE [address] [place] [address] Social History Tobacco Use Types Packs/Day Years [...]
--- OUTSIDE RECORDS SUMMARY | 2025-02-02 08:51 | XMS_ITS | Encounter Summary ---
Author Organization [employer] Address [address] [facility] [address] [place] [address] Care Team Providers Care Seed Cleaner Operator Name Role Phone Unavailable Primary Care Provider Unavailabl e Reason for Visit * Reason Onset Date Comments Dr. Massey medication not working 07/01/2024 Encounter Details Date Type Department Care Team ([facility] st Contact Info) Description 07/01/2024 Telephone [facility] [address] [place] [address] Humza Massey DDS [address] [place] [address] Dr. Massey medication not working Social History [...] anxiolytics prior extraction. Pt to go to [facility]. * Telephone Encounter - Jane Silver - [...] a name change. She is no longer [facility]. She is Bol from recent marriage. Informed patient to bring her current ID and/or marraige certificate for chart update. Insurance carries her current name documented in this encounter Plan of Treatment Not on file documented as of this encounter Visit Diagnoses Not on filedocumented in this encounter
--- OUTSIDE RECORDS SUMMARY | 2025-02-02 08:51 | XMS_ITS | Encounter Summary ---
Author Organization [employer] Address [address] [place] [address] [address] [place] [address] Care Team Providers Care Medical Staff Physician Name Role Phone Unavailable Primary Care Provider [...]
== END 2025-02-02 09:07 | disposition home or self-care (01) ==
LOC: HO.HMCFM 08:29
PROVIDERS: PCP Nurse Practitioner Family; Visit Provider Nurse Practitioner Family
DX: G93.9 Disorder of brain, unspecified (principal); R41.3 Other amnesia; R20.0 Anesthesia of skin; R20.2 Paresthesia of skin; R29.6 Repeated falls; R19.5 Other fecal abnormalities; Z86.0100 Personal history of colon polyps, unspecified; F41.9 Anxiety disorder, unspecified; F32.9 Major depressive disorder, single episode, unspecified; D50.9 Iron deficiency anemia, unspecified; E53.8 Deficiency of other specified B group vitamins; E78.00 Pure hypercholesterolemia, unspecified

== ENCOUNTER 2025-02-02 08:28 | Outpatient (REF) | payer OTHER, SELFPAY ==
--- OUTSIDE RECORDS SUMMARY | 2025-02-02 10:10 | XMS_ITS | Encounter Summary ---
Author Organization [facility] Address [address] [place] [address] Phone Care Team Providers Care Steel Wheel Engraver Name Role Phone Unknown, Unknown Primary Care Provider Jaja Louis MD Primary Care Provide r Reason for Referral * Outpatient Procedure - Closed Specialty Diagnoses / Procedures Referred By Contac t Referred To Contact Radiology Diagnoses Visual loss Procedures US Carotid Duplex Complete (Bilateral) Humberto Rajput MD [address] [place] [address], [address] [place] [phone] Phone: tel: fax: [email or web address] Referral ID Status Reason Start Date Expiration Date Visits Re quested Visits Authorized [id number] Closed 04/02/2023 1 1 Encounter Details Date Type Department Care Team (Latest Contact Info) Description 04/02/2023 Transcribe Orders Virtual Department [address] [place] [id number] Humberto Rajput MD [address] [place] [address], [address] [place] [phone] [email or web address] Visual loss (Primary Dx) Social History [...] clinician's provided indication for this examination in [facility]: Outside Radiology Order; VISUAL LOSS TECHNIQUE: Ultrasound [...] clinician's provided indication for this examination in [facility]:Outside Radiology Order; VISUAL LOSS TECHNIQUE: Ultrasound Carotid [...] loss documented in this encounter Care Teams Steel Wheel Engraver Relationship Specialty Start Date End Date Unknown, Unknown, MD PCP - General 11/24/22 04/05/23 Jaja Mars MD [address] [address] PCP - General Internal Medicine 04/06/23 documented as of this encounter Additional Source Comments The information contained in this document represents components of the legal health record. It is not the complete legal health record.[facility]
--- OUTSIDE RECORDS SUMMARY | 2025-02-02 10:10 | XMS_ITS | Encounter Summary ---
Author Organization [facility] Address [address] [facility] [address] [place] [address] Phone Care Team Providers Care Contract Technician Name Role Phone Unknown, Unknown Primary [...] Expiration Date Visits Re quested Visits Authorized [id number] Closed 03/19/2023 05/18/2023 1 1 Encounter Details Date Type Department Care Team ([facility] st Contact Info) Description 03/22/2023 Transcribe Orders Virtual Department [address] [place] [phone] Jaja Mars MD [address] [place] [phone] MS (multiple sclerosis) (Primary Dx); Unspecified visual [...] clinician's provided indication for this examination in [facility]:Outside Radiology Order; MULTIPLE SCLEROSIS TECHNIQUE: MRI [...] disturbance documented in this encounter Care Teams Contract Technician Relationship Specialty Start Date End Date Unknown, Unknown, MD PCP - General 11/24/22 04/05/23 Jaja Mars MD [address] [address] PCP - General Internal Medicine 04/06/23 documented as of this encounter Additional Source Comments The information contained in this document represents components of the legal health record. It is not the complete legal health record.[facility]
--- OUTSIDE RECORDS SUMMARY | 2025-02-02 10:10 | XMS_ITS | Encounter Summary ---
Author Organization [facility] Address [address] [facility] [address] [place] [address] Phone Care Team Providers Care Housekeeper Head Name Role Phone Jaja Mars MD Primary Care Provide r Encounter Details Date Type Department Care Team (Latest Contact Info) Description 05/30/2023 Transcribe Orders Virtual Department [address] [place] [address] Humberto Rajput MD [address] [place] [address], [address] [place] [address] [email or web address] Bilateral numbness and tingling of arms and [...] sclerosis documented in this encounter Care Teams Housekeeper Head Relationship Specialty Start Date End Date Jaja Mars MD [address] [address] PCP - General Internal Medicine 04/06/23 documented as of this encounter Additional Source Comments The information contained in this document represents components of the legal health record. It is not the complete legal health record.[facility]
--- OUTSIDE RECORDS SUMMARY | 2025-02-02 10:10 | XMS_ITS | Encounter Summary ---
Author Organization [facility] Address [address] [address] [place] [phone] Phone Care Team Providers Care Sales Special Agent Name Role Phone Jaja Mars MD Primary Care Provide r Encounter Details Date Type Department Care Team (Latest Contact Info) Description 12/27/2023 Transcribe Orders Virtual Department [address] [place] [address] Emi Staley PA-C [address] [place] [address] [email or web address] Abdominal pain, unspecified abdominal location (Primary Dx) [...] Primary documented in this encounter Care Teams Sales Special Agent Relationship Specialty Start Date End Date Jaja Mars MD [address] [address] PCP - General Internal Medicine 04/06/23 documented as of this encounter Additional Source Comments The information contained in this document represents components of the legal health record. It is not the complete legal health record.[facility]
--- OUTSIDE RECORDS SUMMARY | 2025-02-02 10:10 | XMS_ITS | Clinical Summary ---
Author Organization [facility] Address [address] [facility] [address] [place] [address] Phone Care Team Providers Care Time Study Statistician Name Role Phone Jaja Mars MD Primary Care Provide r Allergies Active Allergy Reactions Criticality Noted Date Comments Ibuprofen 06/30/2019 Bupropion Hcl Dizziness 09/22/2020 Epinephrine 08/26/2021 convulsions Gadolinium-Containing Contrast Media Hives Medium 04/17/2023 Hives on face, neck and chest reported by patient during MRI at [facility] 2019 Penicillins 06/30/2019 Turmeric (Curcuma Longa) [...] this topic Medical Devices Implanted Type Area Assistant Auto Center Manager Device Identifier Shelf Expiration Date Model / Serial / Lot Clip Hemostasis 360deg 235cm Resolution 360 Latex Free 2.8mm Channel Bx/20ea - [id number] Implanted:Qty: 1 on 12/21/2023 by Agustin Garcia MD at [facility] [employer] [id number] / / Procedures Procedure Name Priority Date/Time Associated Diagnosis Comments HEPATITIS C ANTIBODY, QUALITATIVE Routine 10/19/2021 2:54 PM EDT Fertility testing from Last 3 Months or Most Recently Relevant to Health Maintenance Results * Hepatitis C antibody, qualitative (10/19/2021 2:54 PM EDT) HCV NON-REACTIV E NON-REACTI VE [facility] Blood 10/19/2021 2:54 PM EDT 10/19/2021 3:07 PM EDT us Anna Dykes MD LAB BLOOD ORDERABLES Final Result [facility] [address] [place] [address] from Last 3 Months or Most Recently Relevant to Health Maintenance Insurance CIGNA TPA CIGNA TPA CIGNA TPA CIGNA TPA [facility] Address: [address] [phone] [employer] C[employer] TPA Care Teams Time Study Statistician Relationship Specialty Start Date End Date Jaja Mars MD [address] [address] PCP - General Internal Medicine 04/06/23 Additional Source Comments The information contained in this document represents components of the legal health record. It is not the complete legal health record.[facility]
--- OUTSIDE RECORDS SUMMARY | 2025-02-02 10:10 | XMS_ITS | Encounter Summary ---
Author Organization [facility] Address [address] [facility] [address] [place] [phone] Phone Care Team Providers Care Nutter Up Name Role Phone Unknown, Unknown Primary Care Provider Jaja Louis MD Primary Care Provide r Encounter Details Date Type Department Care Team (Late st Contact Info) Description 03/22/2023 Procedure Pass [facility], [address] [address] Social History Tobacco Use Types Packs/Day Years [...] on filedocumented in this encounter Care Teams Nutter Up Relationship Specialty Start Date End Date Unknown, Unknown, MD PCP - General 11/24/22 04/05/23 Jaja Mars MD [address] [address] PCP - General Internal Medicine 04/06/23 documented as of this encounter Additional Source Comments The information contained in this document represents components of the legal health record. It is not the complete legal health record.[facility]
--- OUTSIDE RECORDS SUMMARY | 2025-02-02 10:10 | XMS_ITS | Encounter Summary ---
Author Organization [facility] Address [address] [facility] [address] [place] [phone] Phone Care Team Providers Care Delivery Table Operator Name Role Phone Jaja Mars MD Primary Care Provide r Encounter Details Date Type Department Care Team (Late st Contact Info) Description 12/21/2023 Procedure Pass [facility] Admitting Dept Virtual Department [address] [place] [address] Social History Tobacco Use Types Packs/Day Years [...] on filedocumented in this encounter Care Teams Delivery Table Operator Relationship Specialty Start Date End Date Jaja Mars MD [address] [address] PCP - General Internal Medicine 04/06/23 documented as of this encounter Additional Source Comments The information contained in this document represents components of the legal health record. It is not the complete legal health record.[facility]
[2025-02-02 11:34] LABS: Hematocrit 31.2 % (37.0-47.0); Hemoglobin 9.5 g/dl (12.0-16.0); Mean Corpuscular HGB Conc 30.4 g/dl (31.0-35.0); Mean Corpuscular Hemoglobin 21.0 pg (27.0-33.0); Mean Corpuscular Volume 68.9 fL (80.0-98.0); NRBC Abs Auto 0.000 X10*3/uL (0.0-0.012); NRBC Pct Auto 0.0 /100WBC (0.0-0.2); Platelet Count 328 X10*3/uL (160-400); Red Blood Count 4.53 X10*6/uL (4.20-5.50); White Blood Count 7.9 X10*3/uL (4.8-10.8)
[2025-02-02 12:02] LABS: Iron 18 mcg/dL (30-160); Unsaturated Iron Binding 354 ug/dL
[2025-02-02 12:03] LABS: Cholesterol 260 mg/dL (<200); HDL Cholesterol 48 mg/dL (>40); Percent Iron Saturation 5 % (15-50); Total Iron Binding Capacity 372 mcg/dL (228-428); Triglycerides 106 mg/dL (<150)
[2025-02-02 12:15] LABS: Folate 3.5 ng/mL (> or = 4.0); Vitamin B12 195 pg/mL (200-900)
[2025-02-02 12:22] LABS: Ferritin 9 ng/mL (10-250)
== END 2025-02-02 08:29 | disposition home or self-care (01) ==
LOC: HO.WFDLDS 08:28
PROVIDERS: PCP Nurse Practitioner Family; Visit Provider Nurse Practitioner Family
DX: F32.9 Major depressive disorder, single episode, unspecified (principal); E55.9 Vitamin D deficiency, unspecified; G93.9 Disorder of brain, unspecified; R41.3 Other amnesia; R20.0 Anesthesia of skin; R20.2 Paresthesia of skin; R29.6 Repeated falls; R19.5 Other fecal abnormalities; F41.9 Anxiety disorder, unspecified; D50.9 Iron deficiency anemia, unspecified; E53.8 Deficiency of other specified B group vitamins; E78.00 Pure hypercholesterolemia, unspecified; Z86.0100 Personal history of colon polyps, unspecified
CPT/HCPCS: 36415; 80061; 82306; 82607; 82728; 82746; 83540; 85027; 96127